=== PATIENT | female | born 1950 | race Caucasian/White ===

== ENCOUNTER 2019-01-17 20:43 | Inpatient (IN) | payer OTHER, BC ==
--- OUTSIDE RECORDS SUMMARY | 2019-01-17 20:45 | XMS REPORT | Clinical Summary ---
:1950 Author Organization [facility] Address [address] [place] [address] Care Team Providers Name Role Phone Sharon Mallory MD Primary Care Provider Allergies Active Allergy Reactions Severity Noted Date Comments Cefaclor 04/19/2018 Meperidine 04/19/2018 Hydromorphone 04/19/2018 Iodine 04/19/2018 Nitrofurantoin Macrocrystal 04/19/2018 Oxycodone-Aspirin 04/19/2018 Carisoprodol 04/19/2018 Sulfa (Sulfonamide Antibiotics) 04/19/2018 Talwin Compound 04/19/2018 Hydrocodone-Acetaminophen 04/19/2018 Medications Medication Sig Dispensed Refills Start Date End Date Status nebivolol (BYSTOLIC) 10 Bystolic 10 mg tablet 0 Active MG tablet TAKE 1 TABLET BY MOUTH DAILY oxybutynin (DITROPAN) 5 oxybutynin 0 Active MG tablet chloride 5 mg tablet traMADol (ULTRAM) 50 mg TAKE 1 TABLET BY 0 03/20/2018 Active tablet MOUTH EVERY 4 HOURS FOR 7 DAYS NEEDED FOR PAIN potassium chloride potassium 0 Active (K-DUR) 20 MEQ CR tablet chloride ER 20 mEq tablet,extended release(part/cry st) cetirizine (ZyrTEC) 10 Take 10 mg by 0 Active MG tablet mouth daily. lansoprazole (PREVACID) Take 15 mg by 0 Active 15 MG capsule mouth daily. magnesium citrate Take 296 mL by 0 Active solution mouth once. methylPREDNISolone follow package 21 tablet 0 04/19/2018 (MEDROL, KARRIE,) 4 mg directions 8 tabletIndications: Lumbar radiculopathy, Lumbar spondylolysis Active Problems No known active problems Encounters Date Type Specialty Care Team Description 08/01/2018 Hospital Encounter Radiology [place], Chronic cough Bj Wade MD 08/01/2018 Hospital Encounter Radiology [place], Cough; Bj Wade MD Allergic, initial encounter 07/19/2018 Transcribe Orders Access [place], Cough (Primary Dx); Bj Wade MD Allergic, initial encounter 07/19/2018 Transcribe Orders Access [place], Chronic cough (Primary Bj Wade MD Dx) 05/10/2018 Office Visit Orthopedic Surgery Matthew Brady, Lumbar radiculopathy, acute (Primary Dx); Nito Carrillo, Lumbar spondylolysis; Lumbar spondylosis; Spondylolisthesis of lumbar region 04/27/2018 Office Visit Orthopedic Surgery Deric Padgett Primary osteoarthritis MD Madyson of left hip (Primary Dx) 04/22/2018 Hospital Encounter Radiology Matthew Brady, Lumbar adjacent segment disease with spondylolisthesis; Nito Carrillo, Lumbar radiculopathy; Lumbar spondylolysis 04/19/2018 Office Visit Orthopedic Surgery Matthew Brady, Spondylolisthesis of lumbar region (Primary Dx); Nito Carrillo, Low back pain, unspecified back pain laterality, unspecified chronicity, with sciatica presence unspecified; Chronic midline thoracic back pain; Pain of left hip joint; Lumbar radiculopathy; Lumbar spondylolysis after 01/16/2018 Family History Medical History Relation Name Comments Cancer Father Heart disease Mother Relation Name Status Comments Father bladder CA Mother Alive Social History Tobacco Use Types Packs/Day Years Used Date Never Smoker Smokeless Tobacco: Never Used Alcohol Use Drinks/Week oz/Week Comments Yes 2 Sex Assigned at Date Recorded Not on file Job Start Date Occupation Industry Not on file Not on file Not on file Travel History Travel Start Travel End No recent travel history available. Last Filed Vital Signs Vital Sign Reading Time Taken Blood Pressure - - Pulse - - Temperature - - Respiratory Rate - - Oxygen Saturation - - Inhaled Oxygen Concentration - - Weight 93.4 kg (206 lb) 05/10/2018 3:44 PM [employer] Height 160 cm (5' 3") 05/10/2018 3:44 PM [employer] Body Mass Index 36.49 05/10/2018 3:44 PM [employer] Plan of Treatment Health Maintenance Due Date Last Done Comments BREAST CANCER SCREENING 2001 COLONOSCOPY SCREENING 2001 SHINGLES VACCINES (#1) 2001 65+ PNEUMOCOCCAL VACCINE (1 of 2 - PCV13) 2016 INFLUENZA VACCINE 01/12/2019 Procedures Procedure Name Priority Date/Time Associated Diagnosis Comments CT CHEST WO Routine 08/01/2018 12:10 Chronic cough Results for this CONTRAST PM [employer] procedure are in the results section. CT SINUS WO Routine 08/01/2018 12:10 Cough Results for this CONTRAST PM [employer] Allergic, initial procedure are in encounter the results section. MRI LUMBAR SPINE Routine 04/22/2018 2:41 Lumbar adjacent Results for this WO CONTRAST PM [employer] segment disease with procedure are in spondylolisthesis the results Lumbar radiculopathy section. Lumbar spondylolysis XR PELVIS 1 OR 2 Routine 04/19/2018 3:52 Pain of left hip joint Results for this VW PM [employer] procedure are in the results section. XR THORACIC SPINE Routine 04/19/2018 3:21 Chronic midline Results for this 2 VW PM [employer] thoracic back pain procedure are in the results section. XR LUMBAR SPINE Routine 04/19/2018 3:21 Low back pain, Results for this COMPLETE 4+ VW PM [employer] unspecified back pain procedure are in laterality, the results unspecified section. chronicity, with sciatica presence unspecified after 01/16/[address] Sinus Wo Contrast (08/01/2018 12:10 PM [employer]) Specimen Narrative Performed At EXAMINATION: CT SINUS WO CONTRAST [facility] CLINICAL HISTORY: R05 Cough, T78.40XA Allergyunspecifiedinitial encounter, R05T78.40XA COMPARISON:None TECHNIQUE: Axial noncontrast enhanced images were obtained through the paranasal sinuses. Bone and soft tissue windows were displayed as well as coronal and sagittal reconstructed images.CT imaging was performed with iterative reconstruction technique and/or automated exposure control to reduce radiation dose. FINDINGS: Frontal sinuses: Clear with patency of the frontal recesses. Ethmoid air cells: Clear with patency of the frontoethmoidal and sphenoethmoidal recesses. Sphenoid sinuses: Clear with patency of the sphenoid ostia. Maxillary sinuses: Minimal polypoid mucosal thickening with tiny foci of calcification along the posteroinferior aspect of the left maxillary sinus. Patency of the bilateral ostiomeatal units. Nasal cavity: Moderate rightward nasal septal deviation of its inferior aspect with apical spur posteriorly. Leftward deviation of the mid and superior portions of the anterior nasal septum. Depth of the olfactory fossae measure up to 5 mm. No evidence of ulceration or mass. Other: Limited evaluation of the visualized intracranial contents demonstrates no significant abnormality. Orbital contents are unremarkable. IMPRESSION: Minimal chronic appearing sinus inflammatory changes within the posterior and inferior aspect of the left maxillary sinus. Patency of the bilateral sinonasal drainage pathways. [id number] Procedure Note Interface, Radiology Results Incoming - 08/01/2018 12:49 PM [employer] EXAMINATION: CT SINUS WO CONTRAST CLINICAL HISTORY: R05 Cough, T78.40XA Allergy unspecified initial encounter, R05 T78.40XA COMPARISON: None TECHNIQUE: Axial noncontrast enhanced images were obtained through the paranasal sinuses. Bone and soft tissue windows were displayed as well as coronal and sagittal reconstructed images. CT imaging was performed with iterative reconstruction technique and/or automated exposure control to reduce radiation dose. FINDINGS: Frontal sinuses: Clear with patency of the frontal recesses. Ethmoid air cells: Clear with patency of the frontoethmoidal and sphenoethmoidal recesses. Sphenoid sinuses: Clear with patency of the sphenoid ostia. Maxillary sinuses: Minimal polypoid mucosal thickening with tiny foci of calcification along the posteroinferior aspect of the left maxillary sinus. Patency of the bilateral ostiomeatal units. Nasal cavity: Moderate rightward nasal septal deviation of its inferior aspect with apical spur posteriorly. Leftward deviation of the mid and superior portions of the anterior nasal septum. Depth of the olfactory fossae measure up to 5 mm. No evidence of ulceration or mass. Other: Limited evaluation of the visualized intracranial contents demonstrates no significant abnormality. Orbital contents are unremarkable. IMPRESSION: Minimal chronic appearing sinus inflammatory changes within the posterior and inferior aspect of the left maxillary sinus. Patency of the bilateral sinonasal drainage pathways. [facility]-[id number] Performing Organization Address City/State/Zipcode Phone Number [facility] [address] [place] [address] CT Chest Wo Contrast (08/01/2018 12:10 PM [employer]) Specimen Narrative Performed At EXAMINATION: [facility] CT CHEST WO CONTRAST CLINICAL HISTORY: R05 Cough, R05 TECHNIQUE: Multiple axial images of the chest were obtained without intravenous contrast. The lack of intravenous contrast reduces the sensitivity of detecting solid organ disease and evaluating vasculature. Sagittal and coronal computerized reformatted images were also obtained.All CT images were acquired using low-dose technique with automated exposure control. COMPARISON: None. FINDINGS: 1.Several small 2 to 3 mm subpleural nodules in lungs bilaterally. The largest in the right upper lobe measures 4 mm and is best visualized on image 46 of series 3. In a patient with no known malignancy the findings may represent sequela of prior infection or bronchiolitis. Follow-up in 3-6 month interval time may be of benefit. 2.The heart size is normal. The thoracic aorta is of normal caliber. There is minimal calcified atherosclerotic plaque in the proximal LAD distribution. No mediastinal lymphadenopathy. 3.Small hiatal hernia there are postsurgical changes in the upper abdomen relating to gastric sleeve surgery. 4.A pleural or pericardial effusion is not identified. No pneumothorax. 5.Osseous structures are intact. IMPRESSION: 1.Bilateral small subpleural pulmonary nodules the majority of which measure between 2 and 3 mm. There is a 4 mm right upper lobe nodule. In a patient with no known malignancy the findings are most likely related to sequela of bronchiolitis/infection. If there is further clinical concern follow-up in 3-6 month interval time may be of benefit. [facility]-[id number] Procedure Note [facility], Radiology Results Incoming - 08/01/2018 2:46 PM [employer] EXAMINATION: CT CHEST WO CONTRAST CLINICAL HISTORY: R05 Cough, R05 TECHNIQUE: Multiple axial images of the chest were obtained without intravenous contrast. The lack of intravenous contrast reduces the sensitivity of detecting solid organ disease and evaluating vasculature. Sagittal and coronal computerized reformatted images were also obtained. All CT images were acquired using low-dose technique with automated exposure control. COMPARISON: None. FINDINGS: 1. Several small 2 to 3 mm subpleural nodules in lungs bilaterally. The largest in the right upper lobe measures 4 mm and is best visualized on image 46 of series 3. In a patient with no known malignancy the findings may represent sequela of prior infection or bronchiolitis. Follow-up in 3-6 month interval time may be of benefit. 2. The heart size is normal. The thoracic aorta is of normal caliber. There is minimal calcified atherosclerotic plaque in the proximal LAD distribution. No mediastinal lymphadenopathy. 3. Small hiatal hernia there are postsurgical changes in the upper abdomen relating to gastric sleeve surgery. 4. A pleural or pericardial effusion is not identified. No pneumothorax. 5. Osseous structures are intact. IMPRESSION: 1. Bilateral small subpleural pulmonary nodules the majority of which measure between 2 and 3 mm. There is a 4 mm right upper lobe nodule. In a patient with no known malignancy the findings are most likely related to sequela of bronchiolitis/infection. If there is further clinical concern follow-up in 3-6 month interval time may be of benefit. [id number] Performing Organization Address City/State/Zipcode Phone Number [facility] [address] [place] [address] MRI Lumbar Spine Wo Contrast (04/22/2018 2:41 PM [employer]) Specimen Narrative Performed At EXAMINATION:MRI LUMBAR SPINE WO CONTRAST [facility] CLINICAL HISTORY:M51.36 Other intervertebral disc degenerationlumbar region, M43.16 Spondylolisthesislumbar region, lumbar spondylolisthesis spondylosisradiculopathy COMPARISON:Lumbar spine radiographs dated April 19, 2018 TECHNIQUE: Multiplanar MRI imaging withoutIV Gadolinium was performed. FINDINGS: There is a grade 2 anterior listhesis of L5 and S1 level. The remaining lumbar spine alignment is unremarkable. Vertebral bodies are preserved. Bone marrow is unremarkable with no evidence of acute fracture or suspicious marrow-replacing lesion. Intervertebral disc spaces are relatively preserved. The distal spinal cord appears unremarkable. The conus medullaris terminates at the L1 level and appears unremarkable. The cauda equina is unremarkable. L1-2: Unremarkable. L2-3: Unremarkable. L3-4: Minimal disc bulge. No canal stenosis or foramina narrowing. L4-5: Mild disc bulge with bilateral facet arthropathy. No canal stenosis or foraminal narrowing. L5-S1: There is bilateral spondylolysis of L5 with associated grade 2 spondylolisthesis of L5 and S1 level. There is bilateral advanced facet arthropathy with diffuse disc bulge. There is no canal stenosis. The lateral recesses are patent. There is severe bilateral foraminal narrowing with potential compromise of the exiting bilateral L5 nerve roots. Visualized paraspinal soft tissues are unremarkable. IMPRESSION: Bilateral spondylolysis of L5 with associated grade 2 anterior listhesis of L5 on S1 level and severe bilateral foraminal spondylotic narrowing with potential compromise of the exiting bilateral L5 nerve roots. [id number] Procedure Note Hm Interface, Radiology Results Incoming - 04/22/2018 3:21 PM [employer] EXAMINATION: MRI LUMBAR SPINE WO CONTRAST CLINICAL HISTORY: M51.36 Other intervertebral disc degeneration lumbar region , M43.16 Spondylolisthesis lumbar region, lumbar spondylolisthesis spondylosis radiculopathy COMPARISON: Lumbar spine radiographs dated April 19, 2018 TECHNIQUE: Multiplanar MRI imaging without IV Gadolinium was performed. FINDINGS: There is a grade 2 anterior listhesis of L5 and S1 level. The remaining lumbar spine alignment is unremarkable. Vertebral bodies are preserved. Bone marrow is unremarkable with no evidence of acute fracture or suspicious marrow-replacing lesion. Intervertebral disc spaces are relatively preserved. The distal spinal cord appears unremarkable. The conus medullaris terminates at the L1 level and appears unremarkable. The cauda equina is unremarkable. L1-2: Unremarkable. L2-3: Unremarkable. L3-4: Minimal disc bulge. No canal stenosis or foramina narrowing. L4-5: Mild disc bulge with bilateral facet arthropathy. No canal stenosis or foraminal narrowing. L5-S1: There is bilateral spondylolysis of L5 with associated grade 2 spondylolisthesis of L5 and S1 level. There is bilateral advanced facet arthropathy with diffuse disc bulge. There is no canal stenosis. The lateral recesses are patent. There is severe bilateral foraminal narrowing with potential compromise of the exiting bilateral L5 nerve roots. Visualized paraspinal soft tissues are unremarkable. IMPRESSION: Bilateral spondylolysis of L5 with associated grade 2 anterior listhesis of L5 on S1 level and severe bilateral foraminal spondylotic narrowing with potential compromise of the exiting bilateral L5 nerve roots. [id number] Performing Organization Address [facility] Phone Number [facility] [address] [place] [address] XR Pelvis 1 Or 2 Vw (04/19/2018 3:52 PM [employer]) Specimen Narrative Performed At X-ray pelvis and left hip shows advanced arthrosis and joint space [facility] narrowing.No fractures or bony erosions visualized. Performing Organization Address City/[facility]/Zipcode Phone Number [facility] [address] [place] [address] XR Thoracic Spine 2 Vw (04/19/2018 3:21 PM [employer]) Specimen Narrative Performed At X-ray thoracic spine AP lateral view shows mid thoracic 10 degree [facility] curvature apex to the right. No fractures or bony erosions visualized. Performing Organization Address City/[facility] Phone Number [facility] [address] [place] [address] XR Lumbar Spine Complete 4+ Vw (04/19/2018 3:21 PM [employer]) Specimen Narrative Performed At X-ray lumbar spine multiple views shows L5 bilateral pars fractures and a [facility] spondylolytic spondylolisthesis grade 2. Minimally mobile with flexion extension views there is also L4-5 disc degeneration and foraminal encroachment. Facet arthrosis and mild lumbar curve nonspecific. No fractures or bony erosions visualize of the pars fracture. Performing Organization Address [facility] Cent[facility]ode Phone Number [facility] [address] [place] [address] after 01/16/2018 Insurance Payer Benefit Plan / Subscriber ID Effective Dates Phone Address Type Group MEDICARE MEDICARE PART A xxxxxxxxxxx 2016-Present [place], [place] Medicare AND B BCBS BCBS CHOICE xxxxxxxxxxxx 2016-Present PPO PPO/[employer] PPO Advance Directives Patient has advance care planning documents on file. For more information, please contact:[facility] [place] [place] [address]
[2019-01-17 21:49] LABS: Absolute Lymphocytes (CBC) 1.1 K/uL (0.7-4.9); Basophils % 0.3 % (0-1.3); Hematocrit 40.7 % (36.0-45.0); Lymphocytes % 8.9 % (15.3-44.8); MPV 7.8 fL (7.6-11.3); RBC Red Blood Cell Count 4.67 M/uL (3.86-4.86)
[2019-01-17 22:05] LABS: Albumin 3.3 g/dL (3.4-5.0); Bilirubin Direct 0.5 mg/dL (0-0.2); Bilirubin Total 1.4 mg/dL (0.2-1.0); Potassium 3.9 mmol/L (3.5-5.1); Protein, Total 7.5 g/dL (6.4-8.2)
[2019-01-17 22:10] LABS: Urine Bacteria LOADED /HPF (<20); Urine Culture Reflex Order NOT NEEDED; Urine RBC >50 /HPF (NONE SEEN)
[2019-01-17 22:11] LABS: Urine Blood 3+ (NEG); Urine Glucose NEGATIVE (NEG); Urine Protein 3+ (NEG); Urine Specific Gravity 1.015 (1.005-1.030)
[2019-01-17 22:50] LABS: Blood Morphology Comment NOT SEEN (NOT SEEN); Platelet Estimate ADEQ; Urine White Blood Cell Casts OK
[2019-01-17] MEDS ORDERED: TAMSULOSIN 0.4 MG SR CAP ONE (22:52)
[2019-01-17] MEDS ORDERED: NA CHLORIDE 0.9% 500 ML ONE (22:52)
[2019-01-17] MEDS ORDERED: MAGNESIUM SULFATE 1 gm IVPB 1 GM/100 ML BAG IV ONE (22:53)
[2019-01-17] MEDS ORDERED: CIPROFLOXACIN 400mg IV 400 MG/200 ML BAG IV ONE (22:53)
--- NOTE | 2019-01-17 23:14 | EDPHYS ---
Physician Documentation [facility] Name: Fernanda Arizmendi Age: 68 yrs Sex: Female : 1950 Arrival Date: 01/17/2019 Time: 20:44 Bed 7 Private MD: ED Physician Jordan Reyez HPI: 01/17 21:11 This 68 yrs old Female presents to ER via Unassigned with complaints of rn Possible Kidney Stone, Fever. 21:11 The patient reports fever, that was measured at 103 degrees Fahrenheit. Onset: The rn symptoms/episode began/occurred 4 day(s) ago. Modifying factors: there are no obvious modifying factors. Severity of symptoms: At their worst the symptoms were moderate in the emergency department the symptoms have improved. The patient has experienced similar episodes in the past. Reports fever and right flank pain, feels identical to previous kidney stones, fever not going away. No cough/sore throat/rash. + nausea. . Historical: - Allergies: 21:23 Oxycodone HCl; fc 21:23 Sulfa (Sulfonamide Antibiotics); fc 21:23 hydrocodone bitartrate; fc 21:23 HYDROCODONE; fc 21:23 Codeine; fc 21:23 Cefaclor; fc 21:23 Ceclor; fc 21:23 Nitrofurantoin Macrocrystal; fc 21:23 meperidine HCl; fc 21:23 Iodine; fc 21:23 hydromorphone HCl; fc 21:23 oxycodone terephthalate; fc 21:23 Carisoprodol; fc - Home Meds: 21:23 Bystolic 10 mg oral tab 1 tab once daily [Active]; oxybutynin chloride 5 mg Oral tab fc [Active]; lansoprazole 15 mg oral cpDR 1 cap once daily [Active]; levocetirizine 5 mg oral tab 1 tab once daily [Active]; montelukast 10 mg oral tab 1 tab once daily [Active]; tramadol 50 mg Oral tab 1 tab as needed [Active]; Magnesium Oxide Oral [Active]; Potassium Chloride Oral [Active]; Vitamin B-6 100 mg oral tab daily [Active]; Vitamin C 1,000 mg Oral tab daily [Active]; Vitamin D Oral 5000 unit daily [Active]; - PMHx: 21:23 GERD; Hypertension; Allergies; Kidney stones; fc - PSHx: 21:23 Bladder suspension; Gastric Bypass; Hysterectomy; Knee surgery; abd mesh and removal; fc - Immunization history:: Last tetanus immunization: up to date. - Social history:: Smoking status: Patient/guardian denies using tobacco, Patient/guardian denies using alcohol, street drugs. - Family history:: not pertinent. - Ebola Screening: : Patient negative for fever greater than or equal to 101.5 degrees Fahrenheit, and additional compatible Ebola Virus Disease symptoms Patient denies exposure to infectious person Patient denies travel to an Ebola-affected area in the 21 days before illness onset. - Hospitalizations: : No recent hospitalization is reported. ROS: 21:11 Constitutional: + fever Eyes: Negative for injury, pain, redness, and discharge, ENT: rn Negative for injury, pain, and discharge, Neck: Negative for injury, pain, and swelling, Cardiovascular: Negative for chest pain, palpitations, and edema, Respiratory: Negative for shortness of breath, cough, wheezing, and pleuritic chest pain, Abdomen/GI: + nausea, + right lower abd pain Back: Negative for injury and pain, : Negative for injury, bleeding, discharge, and swelling, MS/Extremity: Negative for injury and deformity, Skin: Negative for injury, rash, and discoloration, Neuro: Negative for headache, weakness, numbness, tingling, and seizure. Exam: 21:11 Constitutional: This is a well developed, well nourished patient who is awake, alert, rn and in no acute distress. Head/Face: Normocephalic, atraumatic. Eyes: Pupils equal round and reactive to light, extra-ocular motions intact. Lids and lashes normal. Conjunctiva and sclera are non-icteric and not injected. Cornea within normal limits. Periorbital areas with no swelling, redness, or edema. ENT: MMM Respiratory: No increased work of breathing, no retractions or nasal flaring. Abdomen/GI: soft, non-tender Skin: Warm, dry MS/ Extremity: Pulses equal, no cyanosis. Neurovascular intact. Full, normal range of motion. Equal circumference. Neuro: Awake and alert, GCS 15, oriented to person, place, time, and situation. Cranial nerves II-XII grossly intact. Motor strength 5/5 in all extremities. Sensory grossly intact. Cerebellar exam normal. Vital Signs: 21:00 Weight 92.08 kg (R); Height 5 ft. 3 in. (160.02 cm) (R); Pain 2/10; fc 21:00 BP 130 / 70; Pulse 84; Resp 18; Temp 98.1; Pulse Ox 95% on R/A; ak1 22:00 BP 126 / 63; Pulse 89; Resp 18 S; Pulse Ox 94% on R/A; cc3 23:45 BP 128 / 64; Pulse 82; Resp 17 S; Pulse Ox 97% on R/A; cc3 01/18 00:11 BP 119 / 61; Pulse 78; Resp 17 S; Pulse Ox 95% on R/A; cc3 00:47 BP 117 / 60; Pulse 78; Resp 16; Temp 98.8(O); Pulse Ox 96% on R/A; ak1 01/17 21:00 Body Mass Index 35.96 (92.08 kg, 160.02 cm) fc MDM: 01/17 20:59 Patient medically screened. rn 23:11 Differential diagnosis: UTI, ureteral stone. Data reviewed: vital signs, nurses notes, distance learning technician test result(s), radiologic studies, CT scan. Counseling: I had a detailed discussion with the patient and/or guardian regarding: the historical points, exam findings, and any diagnostic results supporting the discharge/admit diagnosis, lab results, radiology results, the need for further work-up and treatment in the hospital. Response to treatment: the patient's symptoms have mildly improved after treatment, and as a result, I will admit patient. Admission orders: after a detailed discussion of the patient's condition and case, the admit orders are written by me. ED course: Will admit for distal ureteral stone, kidney infection, elevated WBC. . 01/17 21:00 Order name: Basic Metabolic Panel rn 01/17 21:00 Order name: CBC with Diff rn 01/17 21:00 Order name: Creatinine for Radiology; Complete Time: 22:40 rn 01/17 21:00 Order name: Hepatic Function; Complete Time: 22:40 rn 01/17 21:00 Order name: Lipase; Complete Time: 22:40 rn 01/17 21:00 Order name: Urine Culture rn 01/17 21: Order name: Urine Microscopic Only; Complete Time: 22:40 rn 01/17 21:00 Order name: CT Stone Protocol rn 01/17 21:00 Order name: Procalcitonin; Complete Time: 22:40 rn 01/17 21:00 Order name: Blood Culture Adult (2) rn 01/17 21:01 Order name: Basic Metabolic Panel; Complete Time: 22:40 EDMS 08 21:01 Order name: CBC with Automated Diff; Complete Time: 23:31 EDMS 08 21:44 Order name: Urine Dipstick--Ancillary (enter results); Complete Time: 22:40 [facility] 01/17 22:51 Order name: CBC Smear Scan; Complete Time: 23:31 EDMS 08 21:00 Order name: IV Saline Lock; Complete Time: 22:30 rn 01/17 21:00 Order name: Labs collected and sent; Complete Time: 22:30 rn 01/17 21:00 Order name: Urine Dipstick-Ancillary (obtain specimen); Complete Time: 22:30 rn Administered Medications: 23:00 Drug: Flomax 0.4 mg Route: PO; [facility] 01/18 00:30 Follow up: Response: No adverse reaction [facility] 01/17 23:00 Drug: Magnesium Sulfate 1 grams Route: IVPB; Infused Over: 1 hrs; Site: right [facility] antecubital; 01/18 00:00 Follow up: IV Status: Completed infusion; IV Intake: 100ml [facility] 01/17 23:00 Drug: NS 0.9% 500 ml Route: IV; Rate: bolus; Site: right antecubital; [facility] 01/18 00:00 Follow up: IV Status: Completed infusion; IV Intake: 500ml [facility] 00:24 Drug: Cipro 400 mg Volume: 200 ml; Route: IVPB; Infused Over: 60 mins; Site: right cc3 antecubital; 00:41 Follow up: IV Status: Order to discontinue infusion; Order to discontinue infusionpt [facility] with bruning sensation and redness to IV site. Dr. Reyez and DR. Francis notified. 01:13 Drug: Rocephin - (cefTRIAXone) 1 grams Route: IVPB; Infused Over: 30 mins; Site: right ak1 antecubital; 01:14 Follow up: IV Status: Completed infusion; IV Intake: 10ml [facility] 01:13 Drug: ZyrTEC - Cetirizine 10 mg Route: PO; ak1 01:14 Follow up: Response: No adverse reaction ak1 Disposition: 01/17/19 23:13 Hospitalization ordered by Landon Francis for Inpatient Admission. Preliminary diagnosis are Distal right ureteral stone, Urinary tract infection, site not specified. - Bed requested for Telemetry/MedSurg (Inpatient). - Status is Inpatient Admission. ak1 - Condition is Stable. - Problem is an ongoing problem. - Symptoms have improved. UTI on Admission? Yes Signatures: Dispatcher [employer] EDMS Sakshi Jaramillo RN RN Viviana Agarwal, RN RN Jordan Reyez MD MD rn Krenek, Amber, RN RN ak1 [facility] Wilson cc3 Corrections: (The following items were deleted from the chart) 01/17 23:17 23:13 Hospitalization Ordered by Landon Francis DO for Inpatient Admission. Preliminary mw diagnosis is Distal right ureteral stone; Urinary tract infection, site not specified. Bed requested for Telemetry/MedSurg (Inpatient). Status is Inpatient Admission. Condition is Stable. Problem is an ongoing problem. Symptoms have improved. UTI on Admission? Yes. rn 01/18 01:37 01/17 23:17 01/17/2019 23:13 Hospitalization Ordered by Landon Francis DO for Inpatient ak1 Admission. Preliminary diagnosis is Distal right ureteral stone; Urinary tract infection, site not specified. Bed requested for Telemetry/MedSurg (Inpatient). Status is Inpatient Admission. Condition is Stable. Problem is an ongoing problem. Symptoms have improved. UTI on Admission? Yes. mw
--- NOTE | 2019-01-17 23:14 | ER ---
Nurse's Notes [facility] Name: Fernanda Arizmendi Age: 68 yrs Sex: Female : 1950 Arrival Date: 01/17/2019 Time: 20:44 Bed 7 Private MD: Diagnosis: Distal right ureteral stone;Urinary tract infection, site not specified Presentation: 01/17 21:00 Presenting complaint: Patient states: that she has been having right sided pain on and fc off x 2 weeks. Positive for nausea and dark colored urine. Denies any diarrhea. Transition of care: patient was not received from another setting of care. Onset of symptoms was December 2018. Risk Assessment: Do you want to hurt yourself or someone else? Patient reports no desire to harm self or others. Initial Sepsis Screen: Does the patient meet any 2 criteria?. Care prior to arrival: None. 21:00 Method Of Arrival: Wheelchair fc 21:00 Acuity: CHICHI 3 fc 01/18 00:29 Initial Sepsis Screen: Does the patient have a suspected source of infection? No. ak1 Patient's initial sepsis screen is negative. Triage Assessment: 00:29 General: Appears in no apparent distress. comfortable, Behavior is calm, cooperative. ak1 Pain: Complains of pain in right side, right flank. Historical: - Allergies: 01/17 21:23 Oxycodone HCl; fc 21:23 Sulfa (Sulfonamide Antibiotics); fc 21:23 hydrocodone bitartrate; fc 21:23 HYDROCODONE; fc 21:23 Codeine; fc 21:23 Cefaclor; fc 21:23 Ceclor; fc 21:23 Nitrofurantoin Macrocrystal; fc 21:23 meperidine HCl; fc 21:23 Iodine; fc 21:23 hydromorphone HCl; fc 21:23 oxycodone terephthalate; fc 21:23 Carisoprodol; fc - Home Meds: 21:23 Bystolic 10 mg oral tab 1 tab once daily [Active]; oxybutynin chloride 5 mg Oral tab fc [Active]; lansoprazole 15 mg oral cpDR 1 cap once daily [Active]; levocetirizine 5 mg oral tab 1 tab once daily [Active]; montelukast 10 mg oral tab 1 tab once daily [Active]; tramadol 50 mg Oral tab 1 tab as needed [Active]; Magnesium Oxide Oral [Active]; Potassium Chloride Oral [Active]; Vitamin B-6 100 mg oral tab daily [Active]; Vitamin C 1,000 mg Oral tab daily [Active]; Vitamin D Oral 5000 unit daily [Active]; - PMHx: 21:23 GERD; Hypertension; Allergies; Kidney stones; fc - PSHx: 21:23 Bladder suspension; Gastric Bypass; Hysterectomy; Knee surgery; abd mesh and removal; fc - Immunization history:: Last tetanus immunization: up to date. - Social history:: Smoking status: Patient/guardian denies using tobacco, Patient/guardian denies using alcohol, street drugs. - Family history:: not pertinent. - Ebola Screening: : Patient negative for fever greater than or equal to 101.5 degrees Fahrenheit, and additional compatible Ebola Virus Disease symptoms Patient denies exposure to infectious person Patient denies travel to an Ebola-affected area in the 21 days before illness onset. - Hospitalizations: : No recent hospitalization is reported. Screenin:17 Abuse screen: Denies threats or abuse. Nutritional screening: No deficits noted. fc Tuberculosis screening: No symptoms or risk factors identified. Fall Risk None identified. Assessment: 21:00 General: Appears in no apparent distress. uncomfortable, Behavior is calm, cooperative. ak1 Pain: Complains of pain in right side, right flank. 21:00 Neuro: No deficits noted. Level of Consciousness is awake, alert, obeys commands, ak1 Oriented to person, place, time, situation, Appropriate for age Ed Educational Aide are equal bilaterally Moves all extremities. Gait is steady, Speech is normal. Cardiovascular: No deficits noted. Respiratory: No deficits noted. Airway is patent Respiratory effort is even, unlabored, Respiratory pattern is regular, symmetrical, Breath sounds are clear bilaterally. GI: Abdomen is round non-distended, Bowel sounds present X 4 quads. Abd is soft and non tender X 4 quads. Reports nausea. : Reports right side pain and right flank pain. pt with hx kidney stones. EENT: No signs and/or symptoms were reported regarding the EENT system. Derm: No signs and/or symptoms reported regarding the dermatologic system. Musculoskeletal: No signs and/or symptoms reported regarding the musculoskeletal system. 21:40 General: Appears in no apparent distress. Behavior is calm, cooperative. Neuro: No ak1 deficits noted. Cardiovascular: No deficits noted. Respiratory: No deficits noted. GI: Reports nausea. : Reports flank pain and urinary s/s. EENT: No signs and/or symptoms were reported regarding the EENT system. Derm: No signs and/or symptoms reported regarding the dermatologic system. Musculoskeletal: No signs and/or symptoms reported regarding the musculoskeletal system. 22:10 Reassessment: Patient appears in no apparent distress at this time. No changes from ak1 previously documented assessment. Patient and/or family updated on plan of care and expected duration. Pain level reassessed. Patient is alert, oriented x 3, equal unlabored respirations, skin warm/dry/pink. 23:00 Reassessment: Patient appears in no apparent distress at this time. No changes from ak1 previously documented assessment. Patient and/or family updated on plan of care and expected duration. Pain level reassessed. Patient is alert, oriented x 3, equal unlabored respirations, skin warm/dry/pink. 01/18 00:28 GI: Bowel sounds present X 4 quads. Abd is soft and non tender X 4 quads. Reports. ak1 00:47 Reassessment: pt with burning pain at IV site when Cipro infusing, Dr. Reyez and Dr. shay Francis notified. Verbal orders to d/c cipro IV and administer zyrtec 10mg PO and 1 gram rocefin IV. 01:14 Reassessment: pt tolerated IV antibiotic well. pt to be transported up to 424 via [facility] wheelchair. Vital Signs: 01/17 21:00 Weight 92.08 kg (R); Height 5 ft. 3 in. (160.02 cm) (R); Pain 2/10; fc 21:00 BP 130 / 70; Pulse 84; Resp 18; Temp 98.1; Pulse Ox 95% on R/A; ak1 22:00 BP 126 / 63; Pulse 89; Resp 18 S; Pulse Ox 94% on R/A; cc3 23:45 BP 128 / 64; Pulse 82; Resp 17 S; Pulse Ox 97% on R/A; cc3 0807 00:11 BP 119 / 61; Pulse 78; Resp 17 S; Pulse Ox 95% on R/A; cc3 00:47 BP 117 / 60; Pulse 78; Resp 16; Temp 98.8(O); Pulse Ox 96% on R/A; ak1 01/17 21:00 Body Mass Index 35.96 (92.08 kg, 160.02 cm) fc ED Course: 01/17 20:44 Patient arrived in ED. ds1 20:59 Jordan Reyez MD is Attending Physician. rn 21:00 Arm band placed on Patient placed in an exam room, on a stretcher. fc 21:00 Patient has correct armband on for positive identification. Placed in gown. Bed in low fc position. Call light in reach. Side rails up X 1. Pulse ox on. NIBP on. 21:00 No provider procedures requiring assistance completed. fc 21:16 Triage completed. fc 21:35 Inserted saline lock: 20 gauge in right antecubital area, using aseptic technique. [id number] Blood collected. 21:41 aZra Clancy, RN is Primary Nurse. ak1 22:28 CT Stone Protocol In Process Unspecified. EDMS 23:13 Landon Francis DO is Hospitalizing Provider. rn 01/18 00:32 Patient admitted, IV remains in place. ak1 Administered Medications: 01/17 23:00 Drug: Flomax 0.4 mg Route: PO; ak1 01/18 00:30 Follow up: Response: No adverse reaction ak1 01/17 23:00 Drug: Magnesium Sulfate 1 grams Route: IVPB; Infused Over: 1 hrs; Site: right ak1 antecubital; 01/18 00:00 Follow up: IV Status: Completed infusion; IV Intake: 100ml ak 01/17 23:00 Drug: NS 0.9% 500 ml Route: IV; Rate: bolus; Site: right antecubital; ak1 01/18 00:00 Follow up: IV Status: Completed infusion; IV Intake: 500ml ak1 00:24 Drug: Cipro 400 mg Volume: 200 ml; Route: IVPB; Infused Over: 60 mins; Site: right cc3 antecubital; 00:41 Follow up: IV Status: Order to discontinue infusion; Order to discontinue infusionpt ak1 with bruning sensation and redness to IV site. Dr. Reyez and DR. Francis notified. 01:13 Drug: Rocephin - (cefTRIAXone) 1 grams Route: IVPB; Infused Over: 30 mins; Site: right ak1 antecubital; 01:14 Follow up: IV Status: Completed infusion; IV Intake: 10ml ak1 01:13 Drug: ZyrTEC - Cetirizine 10 mg Route: PO; ak1 01:14 Follow up: Response: No adverse reaction ak1 Intake: 00:00 IV: 500ml; Total: 500ml. ak1 00:00 IV: 100ml; Total: 600ml. ak1 01:14 IV: 10ml; Total: 610ml. ak1 Outcome: 01/17 23:13 Decision to Hospitalize by Provider. rn 01/18 00:31 Admitted to Med/surg accompanied by tech, via wheelchair, room 424, with chart. ak1 Condition: good 01:37 Patient left the ED. ak1 Signatures: Dispatcher [employer] EDMS Viviana Agarwal RN RN May Brito ds1 Jordan Reyez MD MD rn Krenek, Amber, RN RN ak1 Fanny Linton jb5 [facility] cc3 Corrections: (The following items were deleted from the chart) 01/17 21:18 21:17 Patient has correct armband on for positive identification. Placed in gown. Bed fc in low position. Call light in reach. Side rails up X 1. fc 21:18 21:17 Pulse ox on. NIBP on. fc fc
--- NOTE | 2019-01-18 00:26 | P.HP ---
Certification for Inpatient Patient admitted to: Inpatient With expected LOS: >2 Midnights Patient will require the following post-hospital care: None Practitioner: I am a practitioner with admitting privileges, knowledge of patient current condition, hospital course, and medical plan of care. Services: Services provided to patient in accordance with Admission requirements found in Title 42 Section 412.3 of the Code of Federal Regulations Patient History Date of Service: 01/18/19 Primary Care Provider: Sharon Lyles MD([place], [place]) Reason for admission: Fever, right flank pain History of Present Illness: 68-year-old female presented to the emergency room with right flank pain and fever. Patient reports history of hypertension, nephrolithiasis. Patient came to the ER with increasing fever, chills and right flank pain. Symptoms started on Wednesday. She has not been able to sleep due to the pain. She reports some nausea but no vomiting. No diarrhea or constipation noted. Patient came to the ER for further evaluation. In the ER patient evaluated. Vital signs stable. White count 12.3, hemoglobin 13. Platelet count 199. Urinalysis showed evidence of UTI. Pro calcitonin negative. Sodium 135, potassium 3.9, creatinine 1.08. Glucose 121. CT scan revealed right 2 mm ureteral stone and pyelonephritis. Patient was admitted for further treatment and evaluation. When I saw the patient ER, she appeared stable. Patient reports history of nephrolithiasis since the age of around 15. Patient does not see urology. Allergies acetaminophen [From Vicodin] Allergy (Mild, Verified 01/14/16 08:18) upset stomach carisoprodol [From Soma] Allergy (Mild, Verified 01/08/16 14:18) Hives hydrocodone bitartrate [From Vicodin] Allergy (Mild, Verified 01/08/16 14:18) upset stomach hydromorphone HCl [From Dilaudid] Allergy (Mild, Verified 01/08/16 14:18) upset stomach iodine Allergy (Mild, Verified 01/14/16 08:17) Hives meperidine HCl [From Demerol] Allergy (Mild, Verified 01/08/16 14:18) upset stomach oxycodone HCl [From Percodan] Allergy (Mild, Verified 01/08/16 14:18) upset stomach oxycodone terephthalate [From Percodan] Allergy (Mild, Verified 01/08/16 14:18) upset stomach Sulfa (Sulfonamide Antibiotics) Allergy (Mild, Verified 01/08/16 14:18) Hives codeine Adverse Reaction (Mild, Verified 01/08/16 14:18) upset stomach hydrocodone Adverse Reaction (Mild, Verified 01/08/16 14:18) upset stomach nitrofurantoin macrocrystal [From Macrodantin] Adverse Reaction (Mild, Verified 01/08/16 14:18) upset stomach cefaclor [From Ceclor] Adverse Reaction (Verified 01/08/16 14:18) upset stomach hy Allergy (Uncoded 01/02/16 16:32) Unknown hydromorp Allergy (Uncoded 01/08/16 14:18) Unknown meperidine H Allergy (Uncoded 01/08/16 14:18) Unknown Nitrof Allergy (Uncoded 01/08/16 14:18) Unknown Home medications list reviewed: Yes Home Medications: Cetirizine HCl [Zyrtec*] 10 mg PO DAILY 04/24/13 Nebivolol HCl [Bystolic*] 10 mg PO DAILY 04/24/13 Aspirin [Aspirin EC] 81 mg PO DAILY 07/31/15 Lansoprazole [Prevacid] 30 mg PO DAILY 07/31/15 Magnesium [Magnesium Gluconate] 200 mg PO DAILY 07/31/15 Pyridoxine [Vitamin B-6] 100 mg PO DAILY 07/31/15 Triamterene/Hydrochlorothiazid [Triamterene-Hctz 37.5-25 mg Tb] 1 each PO DAILY 01/08/16 - Past Medical/Surgical History Diabetic: No -: HTN -: Recurrent kidney stones -: GERD -: Obesity -: Gastric Stapling -: Stent/lithotripsy -: Bladder suspension -: Hysterectomy -: Bladder mesh removal Psychosocial/ Personal History: Patient is . She has 2 children - Family History Family History: Reviewed- Non-Contributory - Social History Smoking Status: Never smoker Alcohol use: No CD- Drugs: No Caffeine use: Yes Place of Residence: Home Review of Systems General: Fever, Chills, Weakness, As per HPI Eyes: Unremarkable ENT: Unremarkable Respiratory: Unremarkable Cardiovascular: Unremarkable Gastrointestinal: Nausea, Abdominal Pain, As per HPI Genitourinary: Dysuria, As per HPI Musculoskeletal: Unremarkable Integumentary: Unremarkable Neurological: Unremarkable Lymphatics: Unremarkable Physical Examination - Physical Exam General: Alert, In no apparent distress, Oriented x3, Cooperative HEENT: Atraumatic, Normocephalic, PERRLA, Other (Dry mucous membranes) Neck: Supple, No Thyromegaly Respiratory: Clear to auscultation bilaterally, Normal air movement Cardiovascular: Normal pulses, Regular rate/rhythm Gastrointestinal: Normal bowel sounds, Soft and benign, Non-distended, No masses , No rebound, No guarding, Tenderness (Right flank pain noted) Musculoskeletal: No erythema, No tenderness, No warmth Integumentary: No tenderness/swelling, No erythema, No warmth, No cyanosis Neurological: Normal speech, Normal strength at 5/5 x4 extr, Normal tone, Normal affect - Studies Laboratory Data (last 24 hrs) 01/17/19 21:35: Creatinine 1.08 01/17/19 21:35: WBC 12.3 H, Hgb 13.3, Hct 40.7, Plt Count 199 01/17/19 21:35: Sodium 135 L, Potassium 3.9, BUN 15, Creatinine 1.07, Glucose 121 H, Total Bilirubin 1.4 H, AST 45 H, ALT 39, Alkaline Phosphatase 130 H, Lipase 75 Assessment and Plan - Plan Impression: Fever with right flank pain secondary to right pyelonephritis with right ureteral stone measuring 2 mm Hypertension Plan: Fever with right flank pain secondary to right pyelonephritis with right ureteral stone measuring 2 mm: Patient will be admitted for further evaluation and treatment. Will start IV Cipro. Urine and blood cultures obtained. Will provide medication for pain. Urology will be consulted to further evaluate and treat. Hopefully patient will be able the past ureteral stone. If not patient may require urological intervention. Will monitor strict input and output. Will straining urine. Anticipate discharge likely in the next 2-4 days with clinical improvement and after urinary results. Await further recommendations from neurology. Daytime hospitalist team to continue care. Hypertension: Continue with Bystolic. Will need to obtain and verify home medication. Will monitor and adjust appropriately. Discharge Plan: Home Plan to discharge in: Greater than 2 days - Advance Directives Does patient have a Living Will: No Does patient have a Durable POA for Healthcare: No - Code Status/Comfort Care Code Status Assessed: Yes (Patient is full code) Time Spent Managing Pts Care (In Minutes): 55
[2019-01-18] MEDS ORDERED: CETIRIZINE HCL 5 MG TABLET ONE (01:13)
[2019-01-18] MEDS ORDERED: CEFTRIAXONE/SWI 1gm 1 GM/10 ML SYR ONE (01:13)
[2019-01-18] MEDS: NA CHLORIDE 0.9% 1,000 ML IV SCH ×2 (01:32→11:48)
[2019-01-18] MEDS ORDERED: CETIRIZINE HCL 5 MG TABLET PO PRN (01:32)
[2019-01-18] MEDS ORDERED: ONDANSETRON 4 MG/2 ML VIAL IV PRN (01:32)
[2019-01-18 01:55] VITALS: BMI 35.8
[2019-01-18] MEDS: ENOXAPARIN 40 MG/0.4 ML SQ SCH (08:20)
[2019-01-18] MEDS: NEBIVOLOL HCL 5 MG TAB PO SCH (08:20)
[2019-01-18] MEDS: ASPIRIN EC 81 MG TAB PO SCH (08:20)
[2019-01-18] MEDS: VITAMIN D 1000 UNIT TAB PO SCH (08:20)
--- NOTE | 2019-01-18 11:46 | RAD REPORT ---
EXAM DESCRIPTION: CT - Stone Protocol - 01/18/2019 2:00 am CLINICAL HISTORY: Flank pain, hx of stone TECHNIQUE: Axial computed tomography images of the abdomen and pelvis without intravenous contrast. Sagittal and coronal reformatted images were created and reviewed. This CT exam was performed usi ng one or more of the following dose reduction techniques: automated exposure control, adjustment o f the mA and/or kV according to patient size, and/or use of iterative reconstruction technique. COMPARISON: No relevant prior studies available. FINDINGS: Limitations: None. Lung bases: Unremarkable. No mass. No consolidation. ABDOMEN: Liver: Unremarkable. Gallbladder and bile ducts: Cholecystectomy. No ductal dilation. Pancreas: Unremarkable. No ductal dilation. Spleen: Unremarkable. No splenomegaly. Adrenals: Unremarkable. No mass. Kidneys and ureters: Bilateral renal cortical scarring noted. There is mild right hydrouretero nephrosis. There is a 2 mm stone in the right distal ureter at the UVJ. There are bilateral intra renal stones measuring up to 3 mm. There is a 2 cm left renal cyst which appears benign. There is a hypodense area within the lower pole of the right kidney which is not defined and may represent a cyst. Stomach and bowel: Gastric bypass changes present. Colonic diverticulosis noted. No diverticulitis. No obstruction. PELVIS: Appendix: No findings to suggest acute appendicitis. Bladder: Unremarkable. No stones. Reproductive: Unremarkable as visualized. ABDOMEN and PELVIS: Intraperitoneal space: Unremarkable. No free air. No significant fluid collection. Bones/joints: Degenerative changes present in the spine and hips. No acute osseous abnormality . No dislocation. Soft tissues: Unremarkable. Vasculature: Unremarkable. No abdominal aortic aneurysm. Lymph nodes: Unremarkable. No enlarged lymph nodes. IMPRESSION: 1. 2 mm distal right ureteral stone with mild hydronephrosis. 2. Area of ill-defined hypodensity in the lower pole of the right kidney may represent a cyst. So nography recommended. Electronically signed by: Alta Suero MD 01/17/2019 10:38 PM CDT Due to temporary technical issues with the PACS/Fluency reporting system, reports are being signed by the in house radiologist as a courtesy to ensure prompt reporting. The interpreting radiologist is f ully responsible for the content of the report.
[2019-01-18] MEDS ORDERED: Ringers Lactate 1,000 ML IV ONE (14:24)
[2019-01-18] MEDS ORDERED: SUCCINYLCHOLINE 20 MG/ML (10 ML) IV ONE (14:39)
[2019-01-18] MEDS ORDERED: FENTANYL CITR 100 MCG/2 ML ONE (14:41)
[2019-01-18] MEDS ORDERED: PROPOFOL 200 MG/20 ML VIAL IV ONE (14:41)
[2019-01-18 16:14] LABS: Urine Culture Reflex Order NOT NEEDED; Urine Volume 1 ML
[2019-01-18 16:15] LABS: Urine RBC 20-50 /HPF (NONE SEEN)
[2019-01-18 16:16] LABS: Urine Bacteria 20-50 /HPF (<20)
[2019-01-18] MEDS: CEFTRIAXONE/SWI 1gm 1 GM/10 ML SYR IV SCH (21:58)
[2019-01-18] MEDS: TRAMADOL HCL 50 MG TAB PO PRN (23:41)
[2019-01-19] MEDS: IBUPROFEN 400 MG TAB PO PRN ×2 (00:02→20:36)
[2019-01-19] MEDS: NA CHLORIDE 0.9% 1,000 ML IV SCH ×2 (00:03→20:38)
[2019-01-19 06:08] LABS: Absolute Lymphocytes (CBC) 1.4 K/uL (0.7-4.9); Basophils % 0.5 % (0-1.3); Hematocrit 32.5 % (36.0-45.0); Lymphocytes % 28.2 % (15.3-44.8); MPV 8.2 fL (7.6-11.3)
[2019-01-19 06:26] LABS: Magnesium 2.1 mg/dL (1.8-2.4); Potassium 3.9 mmol/L (3.5-5.1)
[2019-01-19] MEDS: ASPIRIN EC 81 MG TAB PO SCH (08:23)
[2019-01-19] MEDS: VITAMIN D 1000 UNIT TAB PO SCH (08:23)
[2019-01-19] MEDS: NEBIVOLOL HCL 5 MG TAB PO SCH (08:23)
[2019-01-19] MEDS: ENOXAPARIN 40 MG/0.4 ML SQ SCH (08:23)
[2019-01-19] MEDS ORDERED: CEFTRIAXONE 1 GM/NS 50 ML 1 GM/50 ML BAG IV SCH (09:00)
--- NOTE | 2019-01-19 11:13 | P.PN ---
Subjective Date of Service: 01/19/19 Primary Care Provider: Sharon Lyles MD([place], [place]) Chief Complaint: Fever, right flank pain Patient seen and examined at bedside with RN. Chart reviewed. Case discussed with urology at this time. Currently patient is status post stent placement. Doing well overall. Urine cultures pending at this time. Review of Systems 10-point ROS is otherwise unremarkable Physical Examination - Vital Signs Temperature: 97.3 F Blood Pressure: 118/58 Pulse: 72 Respirations: 16 Pulse Ox (%): 98 - Physical Exam General: Alert, In no apparent distress HEENT: Atraumatic, PERRLA, EOMI Neck: Supple, JVD not distended Respiratory: Clear to auscultation bilaterally, Normal air movement Cardiovascular: Regular rate/rhythm, Normal S1 S2 Gastrointestinal: Normal bowel sounds, No tenderness Musculoskeletal: No tenderness Integumentary: No rashes Neurological: Normal speech, Normal tone, Normal affect Lymphatics: No axilla or inguinal lymphadenopathy - Studies Medications List Reviewed: Yes Assessment And Plan - Current Problems (Diagnosis) (1) Pyelonephritis Current Visit: Yes Status: Acute Plan: Pyelonephritis most likely secondary to obstructive uropathy to 2mm stone -currently on IV Rocephin will continue that here in the hospital -urine cultures pending at this time. Preliminary shows Gram negative rods (2) Nephrolithiasis Current Visit: Yes Status: Acute Plan: Nephrolithiasis was 2 mm stone -urology consulted. Appreciated recommendations -status post cystoscopy with stent placement -improvement in symptoms today - Plan Pending clinical improvement will follow up with the cultures here in the hospital shortly. Discharge Plan: Home Plan to discharge in: Greater than 2 days - Code Status/Comfort Care Code Status Assessed: Yes Critical Care: No
--- NOTE | 2019-01-19 20:29 | PN ---
Subjective: Patient is doing well. Objective: Patient is growing gram-negative rods in urine, pending urine culture. Assessment: Status post small stone with pyelonephritis, 2 mm stone in right ureterovesical junction , status post stent placement, postop day 1. Urine culture growing gram-negative rods. We will wait for the culture and sensitivity. Placed patient on antibiotics for 10 to 14 days. The stent can be removed in about a week in the office. MARJORIE/TATA Voice ID: [id number] Report ID: [id number]
[2019-01-19] MEDS: TRAMADOL HCL 50 MG TAB PO PRN (20:37)
[2019-01-19] MEDS: CEFTRIAXONE/SWI 1gm 1 GM/10 ML SYR IV SCH (20:37)
[2019-01-20 05:58] LABS: Absolute Lymphocytes (CBC) 1.5 K/uL (0.7-4.9); Basophils % 0.6 % (0-1.3); Hematocrit 31.8 % (36.0-45.0); Lymphocytes % 35.9 % (15.3-44.8); MPV 8.3 fL (7.6-11.3); RBC Red Blood Cell Count 3.64 M/uL (3.86-4.86)
[2019-01-20 06:11] LABS: Magnesium 1.9 mg/dL (1.8-2.4); Potassium 3.8 mmol/L (3.5-5.1)
[2019-01-20] MEDS: NA CHLORIDE 0.9% 1,000 ML IV SCH (06:44)
[2019-01-20 08:27] VITALS: TEMP 97.3
[2019-01-20] MEDS ORDERED: POTASSIUM 25 MEQ EFFERV TAB PO ONE (09:00)
[2019-01-20] MEDS: ASPIRIN EC 81 MG TAB PO SCH (09:21)
[2019-01-20] MEDS: NEBIVOLOL HCL 5 MG TAB PO SCH (09:21)
[2019-01-20] MEDS: ENOXAPARIN 40 MG/0.4 ML SQ SCH (09:21)
[2019-01-20] MEDS: VITAMIN D 1000 UNIT TAB PO SCH (09:21)
[2019-01-20 09:22] VITALS: O2SAT 97
--- NOTE | 2019-01-20 09:37 | RAD REPORT ---
EXAM DESCRIPTION: RAD - Urethrocystogrphy Retrograde - 01/19/2019 4:28 pm FINDINGS: There were 13 fluoroscopic KUB images acquired during a fluoroscopic assisted placement of a right pigtail stent. Fluoro time was 28 seconds. Images show no suspicious or unexpected finding.
--- NOTE | 2019-01-20 11:32 | P.DS ---
Admission Date: 01/18/19 Discharge Date: 01/20/19 Primary Care Provider: Sharon Lyles MD([place], [place]) Disposition: ROUTINE DISCHARGE Discharge Condition: GOOD Reason for Admission: Fever, right flank pain - Problems (1) Pyelonephritis Status: Acute (2) Nephrolithiasis Status: Acute Brief History of Present Illness: 68-year-old female presented to the emergency room with right flank pain and fever. Patient reports history of hypertension, nephrolithiasis. Patient came to the ER with increasing fever, chills and right flank pain. Symptoms started on Wednesday. She has not been able to sleep due to the pain. She reports some nausea but no vomiting. No diarrhea or constipation noted. Patient came to the ER for further evaluation. In the ER patient evaluated. Vital signs stable. White count 12.3, hemoglobin 13. Platelet count 199. Urinalysis showed evidence of UTI. Pro calcitonin negative. Sodium 135, potassium 3.9, creatinine 1.08. Glucose 121. CT scan revealed right 2 mm ureteral stone and pyelonephritis. Patient was admitted for further treatment and evaluation. When I saw the patient ER, she appeared stable. Patient reports history of nephrolithiasis since the age of around 15. Patient does not see urology. Hospital Course: Overall during the hospital stay patient remained stable Patient was initially admitted to the hospital for pyelonephritis and nephrolithiasis. Was found to have 2 mm stone. Urology was consulted. Patient had a cystoscopy done with stent placement. Patient was also started on IV antibiotics for her pyelonephritis. Urine culture and blood cultures were collected. Urine culture was positive for E. coli. E. coli was sensitive to Macrobid and thus patient was discharged home on Macrobid. Patient was also growing 2+ non beta-hemolytic strep however at this time we will go ahead and treat her with Macrobid. Patient was asked to follow up with primary care provider along with Dr. Chinchilla in about 1-2 weeks post discharge. Patient demonstrated understanding and thus was discharged home under stable condition. Vital Signs/Physical Exam: Temp Pulse Resp BP Pulse Ox 97.3 F 62 16 154/76 H 97 01/20/19 08:00 01/20/19 09:21 01/20/19 08:00 01/20/19 09:21 01/20/19 08:00 General: Alert, In no apparent distress HEENT: Atraumatic, PERRLA, EOMI Neck: Supple, JVD not distended Respiratory: Clear to auscultation bilaterally, Normal air movement Cardiovascular: Regular rate/rhythm, Normal S1 S2 Gastrointestinal: Normal bowel sounds, No tenderness Musculoskeletal: No tenderness Integumentary: No rashes Neurological: Normal speech, Normal tone, Normal affect Lymphatics: No axilla or inguinal lymphadenopathy Laboratory Data at Discharge: WBC 4.1 K/uL (4.3-10.9) L D 01/20/19 05:20 Hgb 10.3 g/dL (12.0-15.0) L 01/20/19 05:20 Hct 31.8 % (36.0-45.0) L 01/20/19 05:20 Plt Count 178 K/uL (152-406) 01/20/19 05:20 Sodium 144 mmol/L (136-145) 01/20/19 05:20 Potassium 3.8 mmol/L (3.5-5.1) 01/20/19 05:20 BUN 13 mg/dL (7-18) 01/20/19 05:20 Creatinine 0.73 mg/dL (0.55-1.3) 01/20/19 05:20 Glucose 96 mg/dL (74-106) 01/20/19 05:20 Magnesium 1.9 mg/dL (1.8-2.4) 01/20/19 05:20 Total Bilirubin 1.4 mg/dL (0.2-1.0) H 01/17/19 21:35 AST 45 U/L (15-37) H 01/17/19 21:35 ALT 39 U/L (12-78) 01/17/19 21:35 Alkaline Phosphatase 130 U/L (45-117) H 01/17/19 21:35 Lipase 75 U/L (73-393) 01/17/19 21:35 Home Medications: Nebivolol HCl [Bystolic*] 10 mg PO DAILY 04/24/13 Lansoprazole [Prevacid] 30 mg PO DAILY 07/31/15 Ascorbic Acid [Vitamin C*] 1,000 mg PO DAILY 01/18/19 Budesonide/Formoterol Fumarate [Symbicort 160-4.5 Mcg Inhaler] 1 puff IN BID 12/30 Cholecalciferol (Vitamin D3) [Vitamin D 5,000 IU Cap*] 1 cap PO DAILY 01/18/19 Magnesium Oxide Otc 01/18/19 Oxybutynin Chloride [Ditropan*] 1 tab PO DAILY 01/18/19 Potassium Chloride Otc 01/18/19 Pyridoxine [Vitamin B-6*] 100 mg PO DAILY 01/18/19 traMADol HCL [Ultram*] 1 tab PO Q6HR PRN 01/18/19 Nitrofuran Macro [Macrobid] 100 mg PO BID #14 cap 01/20/19 New Medications: Nitrofuran Macro [Macrobid] 100 mg PO BID #14 cap Diet: Regular Activity: Ad hafsa Followup: Freddy Chinchilla MD [ACTIVE - CAN ADMIT] - (call to schedule appointment)
[2019-01-20 12:08] VITALS: BP 146/68
== END 2019-01-20 11:23 | disposition home or self-care (01) | DRG 661 ==
LOC: ER 20:43 → ERHOLD 01-18 00:21 → 4TH 01-18 01:12
PROVIDERS: ADMIT Family Medicine; ATTEND Family Medicine
PROC: BT1D1ZZ Fluoroscopy of Right Kidney, Ureter and Bladder using Low Osmolar Contrast (ICD-10-PCS; 2019-01-18)
PROC: 0T768DZ Dilation of Right Ureter with Intraluminal Device, Via Natural or Artificial Opening Endoscopic (ICD-10-PCS; principal; 2019-01-18 13:15)
DX: N13.6 Pyonephrosis (principal); I10 Essential (primary) hypertension; K21.9 Gastro-esophageal reflux disease without esophagitis; E66.9 Obesity, unspecified; Z68.35 Body mass index [BMI] 35.0-35.9, adult; Z79.82 Long term (current) use of aspirin; Z87.442 Personal history of urinary calculi; Z98.84 Bariatric surgery status; Z88.5 Allergy status to narcotic agent; Z88.2 Allergy status to sulfonamides
CPT/HCPCS: 36415; 51610; 74176; 74450; 76377; 80048; 80076; 81003; 81015; 83690; 83735; 84145; 85025; 87040; 87077; 87086; 87088; 87186; 96365; 96367; 96375; 99285; J0330; J0696; J0744; J1650; J2704; J3010; J3475; J7030

== ENCOUNTER 2019-01-21 09:28 | Emergency (ER) | payer OTHER, BC ==
--- OUTSIDE RECORDS SUMMARY | 2019-01-21 09:30 | XMS REPORT | Clinical Summary ---
:1950 Author Organization [facility] Address [address] [place] [address] Care Team Providers Name Role Phone Sharon [...] hip joint; Lumbar radiculopathy; Lumbar spondylolysis after 01/20/2018 Family History Medical History Relation Name Comments [...] 93.4 kg (206 lb) 05/10/2018 3:44 PM [employer] Height 160 cm (5' 3") 05/10/2018 3:44 PM [employer] Body Mass Index 36.49 05/10/2018 3:44 PM [employer] Plan of Treatment Health Maintenance Due Date Last Done Comments BREAST CANCER SCREENING 2001 COLONOSCOPY SCREENING 2001 SHINGLES VACCINES (#1) 2001 65+ PNEUMOCOCCAL VACCINE (1 of 2 - PCV13) 2016 INFLUENZA VACCINE 01/12/2019 Procedures Procedure Name Priority Date/Time Associated Diagnosis Comments CT CHEST WO Routine 08/01/2018 12:10 Chronic cough Results for this CONTRAST PM [employer] procedure are in the results section. CT SINUS WO Routine 08/01/2018 12:10 Cough Results for this CONTRAST PM [employer] Allergic, initial procedure are in encounter the results section. MRI LUMBAR SPINE Routine 04/22/2018 2:41 Lumbar adjacent Results for this WO CONTRAST PM [employer] segment disease with procedure are in spondylolisthesis the results Lumbar radiculopathy section. Lumbar spondylolysis XR PELVIS 1 OR 2 Routine 04/19/2018 3:52 Pain of left hip joint Results for this VW PM [employer] procedure are in the results section. XR THORACIC SPINE Routine 04/19/2018 3:21 Chronic midline Results for this 2 VW PM [employer] thoracic back pain procedure are in the results section. XR LUMBAR SPINE Routine 04/19/2018 3:21 Low back pain, Results for this COMPLETE 4+ VW PM [employer] unspecified back pain procedure are in laterality, the results unspecified section. chronicity, with sciatica presence unspecified after 01/20/[address] Sinus Wo Contrast (08/01/2018 12:10 PM [employer]) Specimen Narrative Performed At EXAMINATION: CT SINUS [...] Patency of the bilateral sinonasal drainage pathways. [id number] Procedure Note Interface, Radiology Results Incoming - 08/01/2018 12:49 PM [employer] EXAMINATION: CT SINUS WO CONTRAST CLINICAL HISTORY: [...] Patency of the bilateral sinonasal drainage pathways. [facility]-[id number] Performing Organization Address City/State/Zipcode Phone Number [facility] [address] [place] [address] CT Chest Wo Contrast (08/01/2018 12:10 PM [employer]) Specimen Narrative Performed At EXAMINATION: [facility] CT CHEST WO CONTRAST CLINICAL HISTORY: R05 [...] month interval time may be of benefit. [id number] Procedure Note [facility][1], Radiology Results Incoming - 08/01/2018 2:46 PM [employer] EXAMINATION: CT CHEST WO CONTRAST CLINICAL HISTORY: [...] month interval time may be of benefit. [id number] Performing Organization Address City/State/Zipcode Phone Number [facility] [address] [place] [address] MRI Lumbar Spine Wo Contrast (04/22/2018 2:41 PM [employer]) Specimen Narrative Performed At EXAMINATION:MRI LUMBAR SPINE [...] of the exiting bilateral L5 nerve roots. [id number] Procedure Note Hm Interface, Radiology Results Incoming - 04/22/2018 3:21 PM [employer] EXAMINATION: MRI LUMBAR SPINE WO CONTRAST CLINICAL [...] of the exiting bilateral L5 nerve roots. [id number] Performing Organization Address City/[facility] Phone Number [facility] [address] [place] [address] XR Pelvis 1 Or 2 Vw (04/19/2018 3:52 PM [employer]) Specimen Narrative Performed At X-ray pelvis and left hip shows advanced arthrosis and joint space [facility] narrowing.No fractures or bony erosions visualized. Performing Organization Address City/[facility]/Zipcode Phone Number [facility] [address] [place] [address] XR Thoracic Spine 2 Vw (04/19/2018 3:21 PM [employer]) Specimen Narrative Performed At X-ray thoracic spine AP lateral view shows mid thoracic 10 degree HM [facility] curvature apex to the right. No fractures or bony erosions visualized. Performing Organization Address City/[facility] Phone Number [facility] [address] [place] [address] XR Lumbar Spine Complete 4+ Vw (04/19/2018 3:21 PM [employer]) Specimen Narrative Performed At X-ray lumbar spine multiple views shows L5 bilateral pars fractures and a [facility] spondylolytic spondylolisthesis grade 2. Minimally mobile with flexion extension views there is also L4-5 disc degeneration and foraminal encroachment. Facet arthrosis and mild lumbar curve nonspecific. No fractures or bony erosions visualize of the pars fracture. Performing Organization Address [facility] Phone Number [facility] [address] [place] [address] after 01/20/2018 Insurance Payer Benefit Plan / Subscriber ID Effective Dates Phone Address Type Group MEDICARE MEDICARE PART A xxxxxxxxxxx 2016-Present [place], [place] Medicare AND B BCBS BCBS CHOICE xxxxxxxxxxxx 2016-Present PPO PPO/[employer] PPO Advance Directives Patient has advance care planning documents on file. For more information, please contact:[facility] [place] [address]
[2019-01-21] MEDS ORDERED: CEFTRIAXONE/SWI 1gm 1 GM/10 ML SYR ONE (10:16)
[2019-01-21] MEDS ORDERED: MORPHINE 4 MG/ML SYR ONE (10:16)
[2019-01-21] MEDS ORDERED: ONDANSETRON 4 MG/2 ML VIAL ONE (10:16)
[2019-01-21] MEDS ORDERED: NA CHLORIDE 0.9% 1,000 ML ONE (10:17)
[2019-01-21 10:18] LABS: Absolute Lymphocytes (CBC) 1.1 K/uL (0.7-4.9); Basophils % 0.7 % (0-1.3); Hematocrit 36.2 % (36.0-45.0); Lymphocytes % 25.6 % (15.3-44.8); RBC Red Blood Cell Count 4.18 M/uL (3.86-4.86)
--- NOTE | 2019-01-21 10:34 | EDPHYS ---
Physician Documentation [facility] Name: Fernanda Arizmendi Age: 68 yrs Sex: Female : 1950 Arrival Date: 01/21/2019 Time: 09:32 Bed 5 Private MD: Sharon Mallory ED Physician Sabino Velasquez HPI: 01/21 09:55 This 68 yrs old Female presents to ER via Unassigned with complaints of Stent lolis Problem. 09:55 The patient complains of pain in the right mid back and right low back. The pain does lolis not radiate. Onset: The symptoms/episode began/occurred today, yesterday. Modifying factors: The symptoms are alleviated by nothing. the symptoms are aggravated by nothing. Associated signs and symptoms: The patient has no apparent associated signs or symptoms. Severity of pain: At its worst the pain was moderate in the emergency department the pain is unchanged. The patient has experienced similar episodes in the past. Historical: - Allergies: 09:54 Carisoprodol; aa5 09:54 Ceclor; aa5 09:54 Cefaclor; aa5 09:54 Codeine; aa5 09:54 HYDROCODONE; aa5 09:54 hydrocodone bitartrate; aa5 09:54 hydromorphone HCl; aa5 09:54 Iodine; aa5 09:54 meperidine HCl; aa5 09:54 Oxycodone HCl; aa5 09:54 oxycodone terephthalate; aa5 09:54 Sulfa (Sulfonamide Antibiotics); aa5 11:32 Cipro IV; iw - PMHx: 09:54 allergies; GERD; Hypertension; Kidney stones; aa5 - PSHx: 09:54 Bladder suspension; Gastric Bypass; Hysterectomy; Knee surgery; abd mesh and removal; aa5 Kidney stent; - Immunization history:: Adult Immunizations up to date. - Social history:: Smoking status: Patient/guardian denies using tobacco. - Family history:: not pertinent. - Ebola Screening: : No symptoms or risks identified at this time. ROS: 09:55 Constitutional: Negative for fever, chills, and weight loss, Eyes: Negative for injury, lolis pain, redness, and discharge, ENT: Negative for injury, pain, and discharge, Neck: Negative for injury, pain, and swelling, Cardiovascular: Negative for chest pain, palpitations, and edema, Respiratory: Negative for shortness of breath, cough, wheezing, and pleuritic chest pain, : Negative for injury, bleeding, discharge, and swelling, MS/Extremity: Negative for injury and deformity, Skin: Negative for injury, rash, and discoloration, Neuro: Negative for headache, weakness, numbness, tingling, and seizure, Psych: Negative for depression, anxiety, suicide ideation, homicidal ideation, and hallucinations, Allergy/Immunology: Negative for hives, rash, and allergies, Endocrine: Negative for neck swelling, polydipsia, polyuria, polyphagia, and marked weight changes, Hematologic/Lymphatic: Negative for swollen nodes, abnormal bleeding, and unusual bruising. 09:55 Abdomen/GI: Positive for abdominal pain, abdominal distension, of the posterior aspect of right lateral abdomen, anterior aspect of right lateral abdomen, right upper quadrant and right lower quadrant. Exam: 09:55 Constitutional: This is a well developed, well nourished patient who is awake, alert, lolis and in no acute distress. Head/Face: Normocephalic, atraumatic. Eyes: Pupils equal round and reactive to light, extra-ocular motions intact. Lids and lashes normal. Conjunctiva and sclera are non-icteric and not injected. Cornea within normal limits. Periorbital areas with no swelling, redness, or edema. ENT: Nares patent. No nasal discharge, no septal abnormalities noted. Tympanic membranes are normal and external auditory canals are clear. Oropharynx with no redness, swelling, or masses, exudates, or evidence of obstruction, uvula midline. Mucous membranes moist. Neck: Trachea midline, no thyromegaly or masses palpated, and no cervical lymphadenopathy. Supple, full range of motion without nuchal rigidity, or vertebral point tenderness. No Meningismus. Chest/axilla: Normal chest wall appearance and motion. Nontender with no deformity. No lesions are appreciated. Cardiovascular: Regular rate and rhythm with a normal S1 and S2. No gallops, murmurs, or rubs. Normal PMI, no JVD. No pulse deficits. Respiratory: Lungs have equal breath sounds bilaterally, clear to auscultation and percussion. No rales, rhonchi or wheezes noted. No increased work of breathing, no retractions or nasal flaring. Female : Normal external genitalia. Skin: Warm, dry with normal turgor. Normal color with no rashes, no lesions, and no evidence of cellulitis. MS/ Extremity: Pulses equal, no cyanosis. Neurovascular intact. Full, normal range of motion. Neuro: Awake and alert, GCS 15, oriented to person, place, time, and situation. Cranial nerves II-XII grossly intact. Motor strength 5/5 in all extremities. Sensory grossly intact. Cerebellar exam normal. Normal gait. Psych: Awake, alert, with orientation to person, place and time. Behavior, mood, and affect are within normal limits. 09:55 Abdomen/GI: Inspection: abdomen appears normal, Bowel sounds: normal, Palpation: moderate abdominal tenderness, in the posterior aspect of right lateral abdomen, anterior aspect of right lateral abdomen, right upper quadrant and right lower quadrant, Liver: no appreciated palpable abnormalities, Hernia: not appreciated. Vital Signs: 10:00 BP 165 / 91; Pulse 68; Resp 18 S; Temp 98.1(O); Pulse Ox 98% on R/A; Weight 91.63 kg aa5 (R); Height 5 ft. 2 in. (157.48 cm) (R); Pain 0/10; 10:00 Body Mass Index 36.95 (91.63 kg, 157.48 cm) aa5 MDM: 09:50 Patient medically screened. [facility] 09:57 Data reviewed: vital signs, nurses notes, lab test result(s), radiologic studies, plain lolis films. 01/21 09:52 Order name: CBC with Diff; Complete Time: 11:05 [facility] 01/21 09:52 Order name: Comprehensive Metabolic Panel; Complete Time: 11:05 [facility] 01/21 09:52 Order name: Urine Culture [facility] 01/21 09:52 Order name: Abdomen 1 View (KUB) XRAY [facility] 01/21 11:28 Order name: Urine Dipstick--Ancillary (enter results) em1 01/21 09:52 Order name: Urine Dipstick-Ancillary (obtain specimen); Complete Time: 11:25 [facility] 01/21 10:25 Order name: Labs - recollect needed: green top; Complete Time: 10:41 iw Administered Medications: 10:15 Drug: NS 0.9% 1000 ml Route: IV; Rate: 1 bolus; Site: right forearm; aa5 11:20 Follow up: IV Status: Completed infusion; IV Intake: 1000ml aa5 10:15 Drug: morphine 2 mg Route: IVP; Site: right forearm; aa5 10:20 Follow up: Response: No adverse reaction aa5 10:15 Drug: Zofran 4 mg Route: IVP; Site: right forearm; aa5 10:20 Follow up: Response: No adverse reaction aa5 10:20 Drug: Rocephin 1 grams Route: IV; Rate: per protocol; Site: right forearm; aa5 10:30 Follow up: Response: No adverse reaction aa5 10:30 Not Given (Patient Refused): morphine 2 mg IVP once; RASS on ADMIN: Combtv4, Very aa5 Agttd3, Agttd2, Rstlss1, AlertClm0, Drwsy-1, Lt Sdtn-2, Mod Sdtn-3, Dp Sdtn-4, UnArsble-5 11:32 CANCELLED (Duplicate Order): Cipro 500 mg PO once [facility] 11:42 Drug: Augmentin 875 mg Route: PO; aa5 11:42 Follow up: Response: Medication administered at discharge. aa5 Disposition: 01/21/19 10:35 Discharged to Home. Impression: Dysuria - displaced double j stent, partially. - Condition is Stable. - Discharge Instructions: Dysuria. - Prescriptions for Augmentin 500- 125 mg Oral Tablet - take 1 tablet by ORAL route every 8 hours for 7 days; 21 tablet. - Medication Reconciliation Form, Thank You Letter, Antibiotic Education, Prescription Opioid Use form. - Follow up: Sharon Mallory MD; When: 1 - 2 days; Reason: Recheck today's complaints, Continuance of care, Re-evaluation by your physician. Follow up: Freddy Chinchilla MD; When: 1 - 2 days; Reason: Recheck today's complaints, Continuance of care, Re-evaluation by your physician. - Problem is new. - Symptoms have improved. Signatures: Dispatcher [employer] Sabino Fisher MD MD cha Williams, Irene, RN RN iw Saida Avila RN RN aa5 Corrections: (The following items were deleted from the chart) 11:32 11:24 Cipro 500 mg PO once ordered. lolis danielle 11:32 11:31 Allergies: Cipro PO; iw iw 11:46 10:35 01/21/2019 10:35 Discharged to Home. Impression: Dysuria - displaced double j aa5 stent, partially. Condition is Stable. Forms are Medication Reconciliation Form, Thank You Letter, Antibiotic Education, Prescription Opioid Use. Follow up: Sharon Mallory; When: 1 - 2 days; Reason: Recheck today's complaints, Continuance of care, Re-evaluation by your physician. Follow up: Freddy Chinchilla; When: 1 - 2 days; Reason: Recheck today's complaints, Continuance of care, Re-evaluation by your physician. Problem is new. Symptoms have improved. lolis
--- NOTE | 2019-01-21 10:34 | ER ---
Nurse's Notes [facility] Name: Fernanda Arizmendi Age: 68 yrs Sex: Female : 1950 Arrival Date: 01/21/2019 Time: 09:32 Bed 5 Private MD: Sharon Mallory Diagnosis: Dysuria-displaced double j stent, partially Presentation: 01/21 09:40 Note Pt in restroom. aa5 09:54 Presenting complaint: Patient states: "I accidentally pulled on my kidney stent string aa5 and now I am leaking everywhere". Pt denies pain. Pt reports having kidney stent placed by Dr. Chinchilla on Wednesday. Pt reports taking Macrobid. 09:54 Risk Assessment: Do you want to hurt yourself or someone else? Patient reports no aa5 desire to harm self or others. 09:54 Acuity: CHICHI 3 aa5 09:54 Transition of care: patient was not received from another setting of care. Onset of aa5 symptoms was January 2019. Initial Sepsis Screen: Does the patient meet any 2 criteria? No. Patient's initial sepsis screen is negative. Does the patient have a suspected source of infection? No. Patient's initial sepsis screen is negative. Care prior to arrival: None. 09:54 Method Of Arrival: Ambulatory aa5 Historical: - Allergies: 09:54 Carisoprodol; aa5 09:54 Ceclor; aa5 09:54 Cefaclor; aa5 09:54 Codeine; aa5 09:54 HYDROCODONE; aa5 09:54 hydrocodone bitartrate; aa5 09:54 hydromorphone HCl; aa5 09:54 Iodine; aa5 09:54 meperidine HCl; aa5 09:54 Oxycodone HCl; aa5 09:54 oxycodone terephthalate; aa5 09:54 Sulfa (Sulfonamide Antibiotics); aa5 11:32 Cipro IV; iw - PMHx: 09:54 allergies; GERD; Hypertension; Kidney stones; aa5 - PSHx: 09:54 Bladder suspension; Gastric Bypass; Hysterectomy; Knee surgery; abd mesh and removal; aa5 Kidney stent; - Immunization history:: Adult Immunizations up to date. - Social history:: Smoking status: Patient/guardian denies using tobacco. - Family history:: not pertinent. - Ebola Screening: : No symptoms or risks identified at this time. Screenin:36 Abuse screen: Denies threats or abuse. Nutritional screening: No deficits noted. aa5 Tuberculosis screening: No symptoms or risk factors identified. Fall Risk None identified. Assessment: 09:55 General: Appears uncomfortable, Behavior is calm, cooperative. Pain: Denies pain. aa5 Neuro: Level of Consciousness is awake, alert, obeys commands, Oriented to person, place, time, situation. Cardiovascular: Heart tones S1 S2 present Rhythm is regular. Respiratory: Airway is patent Respiratory effort is even, unlabored, Respiratory pattern is regular, symmetrical. GI: Abdomen is round Bowel sounds present X 4 quads. Abd is soft and non tender X 4 quads. Patient currently denies nausea, vomiting. : Pt states "I am leaking because I pulled on my kidney stent" Denies burning with urination. EENT: No signs and/or symptoms were reported regarding the EENT system. Derm: Skin is pink, warm \\T\\ dry. Musculoskeletal: Range of motion: intact in all extremities. 10:18 Reassessment: Kidney stent removed by Dr. Velasquez at this time, pt tolerated well. Pt aa5 currently denies pain. . 10:18 Reassessment: Patient is alert, oriented x 3, equal unlabored respirations, skin aa5 warm/dry/pink. 11:15 Reassessment: Patient is alert, oriented x 3, equal unlabored respirations, skin aa5 warm/dry/pink. Pt ambulatory to restroom, accompanied by significant other . Vital Signs: 10:00 BP 165 / 91; Pulse 68; Resp 18 S; Temp 98.1(O); Pulse Ox 98% on R/A; Weight 91.63 kg aa5 (R); Height 5 ft. 2 in. (157.48 cm) (R); Pain 0/10; 10:00 Body Mass Index 36.95 (91.63 kg, 157.48 cm) aa5 ED Course: 09:32 Patient arrived in ED. ag5 09:33 Sharon Mallory MD is Private Physician. ag5 09:48 Nicolasa Zaman RN is Primary Nurse. jl7 09:50 Sabino Velasquez MD is Attending Physician. lolis 09:54 Arm band placed on Patient placed in an exam room, on a stretcher. aa5 09:54 Patient has correct armband on for positive identification. Placed in gown. Bed in low aa5 position. Call light in reach. Side rails up X2. 10:12 Initial lab(s) drawn, by me, sent to lab. Inserted saline lock: 22 gauge in right aa5 forearm, using aseptic technique. Blood collected. 10:34 Sharon Mallory MD is Referral Physician. lolis 10:34 Freddy Chinchilla MD is Referral Physician. lolis 10:34 Triage completed. aa5 10:41 Abdomen 1 View (KUB) XRAY In Process Unspecified. EDMS 10:42 Lab(s) recollected, by me, sent to lab. jl7 10:51 Saida Avila, RN is Primary Nurse. aa5 11:42 No provider procedures requiring assistance completed. IV discontinued, intact, aa5 bleeding controlled, No redness/swelling at site. Pressure dressing applied. Administered Medications: 10:15 Drug: NS 0.9% 1000 ml Route: IV; Rate: 1 bolus; Site: right forearm; aa5 11:20 Follow up: IV Status: Completed infusion; IV Intake: 1000ml aa5 10:15 Drug: morphine 2 mg Route: IVP; Site: right forearm; aa5 10:20 Follow up: Response: No adverse reaction aa5 10:15 Drug: Zofran 4 mg Route: IVP; Site: right forearm; aa5 10:20 Follow up: Response: No adverse reaction aa5 10:20 Drug: Rocephin 1 grams Route: IV; Rate: per protocol; Site: right forearm; aa5 10:30 Follow up: Response: No adverse reaction aa5 10:30 Not Given (Patient Refused): morphine 2 mg IVP once; RASS on ADMIN: Combtv4, Very aa5 Agttd3, Agttd2, Rstlss1, AlertClm0, Drwsy-1, Lt Sdtn-2, Mod Sdtn-3, Dp Sdtn-4, UnArsble-5 11:32 CANCELLED (Duplicate Order): Cipro 500 mg PO once lolis 11:42 Drug: Augmentin 875 mg Route: PO; aa5 11:42 Follow up: Response: Medication administered at discharge. aa5 Intake: 11:20 IV: 1000ml; Total: 1000ml. aa5 Outcome: 10:35 Discharge ordered by . lolis 11:42 Discharged to home ambulatory, with significant other. aa5 11:42 Condition: improved 11:42 Discharge instructions given to patient, significant other, Instructed on discharge instructions, follow up and referral plans. medication usage, Demonstrated understanding of instructions, follow-up care, medications, Prescriptions given X 1, Pt instructed to continue Macrobid per Dr. Velasquez 11:46 Patient left the ED. aa5 Signatures: Dispatcher [employer] EDIN Sabino Velasquez MD MD cha Williams, Irene, RN RN Saida Price RN RN aa5 Nicolasa Zaman RN RN jl7 Adrien Foster ag5 Corrections: (The following items were deleted from the chart) 10:36 10:00 BP 165 / 91; Pulse 68bpm; Resp 18bpm; Spontaneous; Pulse Ox 98% RA; Temp 98.1F aa5 Oral; Pain 0/10; aa5 10:37 10:00 Arm band placed on Patient placed in an exam room, on a stretcher, aa5 aa5 11:32 11:31 Allergies: Cipro PO; iw iw
[2019-01-21 11:04] LABS: Albumin 2.6 g/dL (3.4-5.0); Bilirubin Total 0.3 mg/dL (0.2-1.0); Potassium 3.7 mmol/L (3.5-5.1); Protein, Total 6.1 g/dL (6.4-8.2)
[2019-01-21] MEDS ORDERED: CIPROFLOXACIN HCL 500 MG TAB ONE (11:30)
[2019-01-21 11:32] LABS: Urine Blood 2+ (NEG); Urine Glucose NEGATIVE (NEG); Urine Protein TRACE (NEG); Urine Specific Gravity 1.015 (1.005-1.030)
[2019-01-21] MEDS ORDERED: AMOX/K CLAV 875 MG TAB ONE (11:39)
[2019-01-21 11:51] VITALS: BP 165/91; TEMP 98.1; O2SAT 98
--- NOTE | 2019-01-21 12:12 | RAD REPORT ---
EXAM DESCRIPTION: RAD - Abdomen 1 View (KUB) - 01/21/2019 10:39 am CLINICAL HISTORY: ABD PAIN Pain COMPARISON: Abdomen 1 View (KUB) dated 02/11/2016; Abdomen 1 View (KUB) dated 01/14/2016; ABDOMEN 1 VIE W KUB dated 05/13/2015; ABDOMEN 1 VIEW KUB dated 05/30/2013 FINDINGS: The bowel gas pattern is non-obstructive. No evidence of free air or pneumatosis. Right do uble-J stent is in place. No calcifications are seen along the course of the stent No significant bony findings. Cholecystectomy clips. IMPRESSION: Negative examination.
== END 2019-01-21 11:46 | disposition home or self-care (01) ==
LOC: ER 09:28
DX: T83.89XA Other specified complication of genitourinary prosthetic devices, implants and grafts, initial encounter (principal); R30.0 Dysuria; M54.5 Low back pain; I10 Essential (primary) hypertension; K21.9 Gastro-esophageal reflux disease without esophagitis; Z88.1 Allergy status to other antibiotic agents; Z88.5 Allergy status to narcotic agent; Z88.2 Allergy status to sulfonamides; Z88.8 Allergy status to other drugs, medicaments and biological substances
CPT/HCPCS: 96361; 87088; 85025; 87086; 36415; 81003; 80053; 74018; 96375; 96374; 99284; J0696; J7030; J2405

== ENCOUNTER 2022-07-28 10:06 | Day surgery (SDC) | payer OTHER, BC ==
[2022-07-28] MEDS ORDERED: Ringers Lactate 1,000 ML IV ONE (11:10)
[2022-07-28] MEDS ORDERED: propofoL 200 MG/20 ML VIAL IV ONE (15:12)
[2022-07-28] MEDS ORDERED: LIDOCAINE 1% MPF 5 ML VIAL ONE (15:12)
[2022-07-28] MEDS ORDERED: MIDAZOLAM HCL 2 MG/2 ML INJ ONE (15:12)
[2022-07-28] MEDS ORDERED: FENTANYL CITR 100 MCG/2 ML ONE (15:12)
[2022-07-28] MEDS ORDERED: ONDANSETRON 4 MG/2 ML VIAL ONE (15:15)
[2022-07-28] MEDS ORDERED: CEFAZOLIN SODIUM 2 GM/VIAL ONE (15:19)
[2022-07-28] MEDS ORDERED: KETOROLAC 30 MG/ML INJ ONE (15:56)
--- NOTE | 2022-07-28 16:11 | RAD REPORT ---
EXAM DESCRIPTION: RAD - Urethrocystogrphy Retrograde - 07/28/2022 4:06 pm CLINICAL HISTORY: LEFT STENT COMPARISON: Urethrocystogrphy Retrograde dated 01/18/2019 FINDINGS: Total fluoro time: 3 minutes and 33 seconds
[2022-07-28] MEDS ORDERED: TRAMADOL 37.5mg/APAP 325mg PER TAB PO ONE (16:24)
[2022-07-28] MEDS ORDERED: PHENAZOPYRIDINE 100MG TAB PO ONE (16:24)
--- NOTE | 2022-07-28 16:24 | OP ---
Surgeon: CAROLA RITTER Preoperative Diagnoses: 1.Left ureterolithiasis. 2.Left nephrolithiasis. 3.Left hydronephrosis. 4.Left flank pain. Postoperative Diagnoses: 1.Left ureterolithiasis. 2.Left nephrolithiasis. 3.Left hydronephrosis. 4.Left flank pain. 5.Impacted proximal left ureteral calculus. 6.Cystitis. Principal Procedures: 1.Cystoscopy with left retrograde pyelography. 2.Attempted left ureteral stent placement, failed. Indication For Procedure: Ms. Arizmendi is a 72-year-old woman, presented to the [facility]rology Clinic with s ignificant volume of left nephrolithiasis associated with a 4 mm proximal left ureterolithiasis as we ll as small volume right nephrolithiasis as a recurrent stone former over 50 years. Given the signif icant volume of stone, she was recommended for cystoscopy with ureteral stent placement in advance of definitive management via either ureteroscopy with laser lithotripsy or potentially ESWL. Procedure In Detail: The patient was consented in the preoperative holding area before being transfe rred to operative suite where general anesthesia was induced. She was given Ancef 2 g IV antimicrobi al prophylaxis and pneumo boots were provided for DVT prophylaxis. She was placed in the lithotomy p osition, padded and secured to the table appropriately and her genitalia were prepped with Hibiclens before being draped in standard fashion. The case was begun using a 22-Honduran rigid cystoscope to tr averse the urethra and enter a bladder with ease. The bladder was decompressed of fluid and urine an d then refilled with sterile saline and surveyed in its entirety. There were no concerning papillary mucosal lesions, foreign bodies or stones, but there was evidence of chronic cystitis throughout. T he ureteral orifices were orthotopic in location and so the left ureteral orifice was cannulated usin g the tip of a 5-Honduran ureteral access catheter. Fluoroscopic imaging was utilized and a retrograde pyelogram was performed. Left retrograde pyelography: Using a 70:30 mixture of Omnipaque and saline, contrast was injected via the lumen of the 5-Honduran ur eteral access catheter and did navigate up the distal into the mid and into the proximal ureter where it reached a point of obstruction associated with a barely visible radiopaque calculus in the locati on just distal to the UPJ. This was at the body of L4. Because no contrast essentially passed beyon d this point of obstruction, I advanced the 5-Honduran ureteral access catheter into the mid proximal u reter and again injected contrast using a bit more pressure. This time, a wisp of contrast did go be yond the obstructing calculus and begin to enter the renal pelvis and lower pole calices. As a resul t, I utilized a Sensor wire and attempted to pass it via the 5-Honduran ureteral access catheter and in to the collecting system. Unfortunately, the Sensor wire would not pass and would simply coil beneat h this point of obstruction. Multiple attempts were made using live fluoroscopy and were all unsucce ssful. I then tried a Glidewire with a straight tip to try to surpass the stone, but this also would not pass despite multiple attempts under live fluoroscopic imaging. As a result, I utilized an angl ed Glidewire attempting to navigate this past the point of obstruction in the proximal ureter, but ev en this would not pass despite multiple attempts. I tried 1 last time with the Sensor wire before ev entually avoiding further attempts at ureteral stent placement. Of note, I did again try to forcibly inject contrast right beneath the stone in an effort to hopefully dislodge it, but this did not allo w success of wire passage into the collecting system. As a result, I decompressed the bladder of flu id and urine, and took her out of the lithotomy position. She was then awakened from general anesthe joann before being transferred to a stretcher and then transferred to the recovery room in good conditi on. Complications: None. Discharge Disposition: She will require left percutaneous nephrostomy tube placement and an antegrad e approach to management of her nephrolithiasis and proximal impacted ureteral calculus. She will be counseled on the very high risk of stricture formation given the impacted calculus in that region. We will arrange for the left percutaneous nephrostomy to promptly as an outpatient hopefully within t he next 24-48 hours. Subsequent definitive antegrade approach will be determined after the percutane ous nephrostomy tube is placed. ALEXSANDRA/MODL Voice ID: [id number] Report ID: [id number]
[2022-07-28 17:30] VITALS: BP 144/64; TEMP 97.6; O2SAT 99
--- NOTE | 2022-07-28 17:32 | EKG ---
Test Date: 2022-07-23 Test Time: 15:52:24 Supervisor Scrap Preparation: GRACIA MEASUREMENT RESULTS: Intervals: Rate: 72 OR: 194 QRSD: 78 QT: 408 QTc: 446 Wayan: P: 53 OR: 194 QRS: -3 T: 62 INTERPRETIVE STATEMENTS: Normal sinus rhythm Cannot rule out Anterior infarct, age undetermined Abnormal ECG Compared to ECG 01/02/2016 09:41:04 Myocardial infarct finding now present ST (T wave) deviation no longer present Electronically Signed On 07-28-22 17:19:39 ARCHITECTURAL DRAFTER by Saleem Miller
== END 2022-07-28 17:15 | disposition home or self-care (01) ==
LOC: OR 10:06
PROVIDERS: ATTEND Urology
PROC: 0T778DZ Dilation of Left Ureter with Intraluminal Device, Via Natural or Artificial Opening Endoscopic (ICD-10-PCS; principal; 2022-07-28 11:45)
DX: N13.2 Hydronephrosis with renal and ureteral calculous obstruction (principal); R10.9 Unspecified abdominal pain; N30.90 Cystitis, unspecified without hematuria
CPT/HCPCS: 93005; 74450; 51610; 52332; J2704; J2001; J2250; J3010; J7120; J2405

== ENCOUNTER 2022-08-27 06:04 | Day surgery (SDC) | payer OTHER, BC ==
[2022-08-17 10:43] LABS: Absolute Lymphocytes (CBC) 1.4 K/uL (0.7-4.9); Hematocrit 36.7 % (36.0-45.0); Lymphocytes % 16.7 % (15.3-44.8); MCV 86.2 fL (80-100); MPV 7.4 fL (7.6-11.3); RBC Red Blood Cell Count 4.26 M/uL (3.86-4.86)
[2022-08-17 10:44] LABS: Protime INR 1.05
[2022-08-17 10:54] LABS: Potassium 3.6 mmol/L (3.5-5.1)
[2022-08-27] MEDS ORDERED: Ringers Lactate 1,000 ML IV ONE ×2 (06:44→11:11)
[2022-08-27] MEDS ORDERED: VANCOMYCIN 1 GM in NA CHLORIDE 0.9% 250 ML IVPB SCH (07:00)
[2022-08-27] MEDS ORDERED: Gentamicin Inj 200 MG in NA CHLORIDE 0.9% 100 ML IV SCH (07:00)
[2022-08-27] MEDS ORDERED: LIDOCAINE 2% MPF 5 ML VIAL ONE (08:37)
[2022-08-27] MEDS ORDERED: propofoL 200 MG/20 ML VIAL IV ONE (08:37)
[2022-08-27] MEDS ORDERED: ROCURONIUM 50 MG/5 ML VIAL IV ONE (08:38)
[2022-08-27] MEDS ORDERED: NS 0.9% VIAL 0 ML ONE (08:39)
[2022-08-27] MEDS ORDERED: FENTANYL CITR 100 MCG/2 ML ONE ×2 (09:13→09:45)
[2022-08-27] MEDS ORDERED: dexAMETHasone 10 MG/ML VIAL ONE (09:50)
[2022-08-27] MEDS ORDERED: KETOROLAC 30 MG/ML INJ ONE (09:50)
[2022-08-27] MEDS ORDERED: ONDANSETRON 4 MG/2 ML VIAL ONE (09:52)
[2022-08-27] MEDS ORDERED: EPHEDRINE SULF 50 MG/ML VIAL ONE (09:53)
[2022-08-27] MEDS ORDERED: GLYCOPYRROLATE 0.2 MG/ML SYR ONE (11:37)
[2022-08-27] MEDS ORDERED: MEPERIDINE HCL 25 MG/ML SYR ONE (12:18)
[2022-08-27] MEDS ORDERED: DIPHENHYDRAMINE 50 MG/ML VIAL ONE (12:18)
[2022-08-27] MEDS ORDERED: TRAMADOL 37.5mg/APAP 325mg PER TAB PO ONE (12:28)
[2022-08-27] MEDS ORDERED: PHENAZOPYRIDINE 100MG TAB PO ONE (12:28)
--- NOTE | 2022-08-27 12:46 | OP ---
Surgeon: CAROLA RITTER Preoperative Diagnoses: 1.Impacted left ureteropelvic junction calculus. 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 3.Left nephroureterolithiasis. Postoperative Diagnoses: 1.Impacted left ureteropelvic junction calculus. 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 3.Left nephroureterolithiasis. Principal Procedures: 1.Antegrade nephrostogram. 2.Percutaneous nephrostolithotomy. 3.Ureteroscopy with pyeloscopy and laser lithotripsy. 4.Ureteroscopic stone basketing. 5.Balloon dilation of ureteral stricture. 6.Left nephrostomy tube extraction. 7.Left ureteral stent placement. Indication For Procedure: Ms. Arizmendi presented to the Urology Clinic with an obstructing proximal u reteral stone in addition to some nephrolithiasis on the left side. She was taken to the operating r oom for cystoscopy and attempted left ureteral stent placement, but no contrast would pass beyond the point of obstruction in the proximal ureter/UPJ and thus no ureteral stent was able to be placed. S he thus was referred for a percutaneous nephrostomy tube, which was placed via Interventional Radiolo gy. She presents today for antegrade approach to management of the stones and the UPJ suspected sten osis/stricture with impacted UPJ stone. Procedure In Detail: The patient was consented in the preoperative holding area before being transfe rred to the operative suite where general anesthesia was induced. She was given vancomycin, given a preoperative nephrostomy tube urine culture revealing MRSA, and gentamicin 2-3 mg per kg IV antimicro bial prophylaxis. Pneumo boots were provided for DVT prophylaxis. She was intubated on the stretche r and then transferred to the operative table in the prone position with a gel roll across her upper chest and across the pelvis. Her arms were placed laterally and above her head in a relaxed position , padded and secured to the table appropriately. The nephrostomy tube was from its bag and it was prepped copiously using ChloraPrep and draped in standard fashion. The case was begun by inj ecting a 70:30 mixture of Omnipaque and saline via the nephrostomy to perform an antegrade nephrostog mariah and define the anatomy. Left antegrade nephrostogram: Using the 70:30 mixture of Omnipaque and saline, contrast was injected via the lumen of the nephrosto my tube and did delineate the tube, which was placed inferiorly and traversed all the way up across t he surface of the kidney to the upper pole most calyx where it entered and was then subsequently coil ed in the renal pelvis. I thus cut the nephrostomy tube and released it from its suture attaching it to the flank region and passed a Sensor wire via the nephrostomy tube coiling it within the renal pe lvis. Over the Sensor wire, I passed a 5-S[place]omean ureteral access catheter and then attempted to navig ate the tip of the Sensor wire down the ureteropelvic junction. Of note, upon injection of contrast for the antegrade nephrostogram, contrast did terminate in the proximal ureter at the UPJ and would n ot progress further down due to apparent stenosis/stricture in that region. As a result, it was abraham ined within the kidney. Despite multiple attempts using a Sensor wire and then a hydrophilic Glidewi re, I was unable to pass any wires beyond the point of stricture/stenosis in the UPJ/proximal ureter. The stones were not radiopaque and thus not visible fluoroscopically. As a result, I passed a Supe r Stiff wire via the 5-S[place] Tomean ureteral access catheter and coiled it within the renal pelvis securing it as a safety wire. Over the Super Stiff wire, I passed a dual-lumen catheter into the upper pole calyx, infundibulum and passed a Bentson guidewire via the second lumen after confirming appropriate location of the dual-lumen catheter. I similarly coiled the Bentson guidewire within the renal pelvi s. I coiled the Super Stiff wire and kept aside as a safety wire secured in position. I then passed over the Bentson wire after incising the skin a bit more using an 11 blade, a 15-S[place]omean by 10 cm ure teral balloon dilator catheter in order to dilate the nephrostomy tract and entry into the upper pole calyx and infundibulum. This was successfully performed as evidenced fluoroscopically, and once the entire tract was dilated up through the skin, I then was able to pass a 15-[place]omean ureteral access sh eath over the Bentson guidewire successfully into the renal pelvis via the upper pole calyceal infund ibulum. I then secured the ureteral access sheath in place using a 2-0 silk suture, and then I passe d the flexible ureteroscope over the Bentson guidewire all the way into the renal pelvis via the uret eral access sheath. I then navigated it down to the point of obstruction and was able to visualize a n approximately 4-5 mm calculus present there. I thus utilized a 272 nm laser fiber and power settin g of 0.8 joules and 10 hertz to quickly fragment the calculus from its impacted location. Once I per formed this, I still did not see an opening into the proximal ureter; so I injected contrast via the ureteroscope and it still terminated at that point of obstruction. I thus continued to survey using pressurized irrigation visually and finally found a pit within the superior most point visually of th e ureteral lumen and I was then able to pass a Sensor wire via the ureteroscope successfully through this opening and navigated down the ureter all the way into the bladder as evidenced fluoroscopically . I then attempted to pass the ureteroscope over the wire, but it would not pass beyond the point of the strictured stenosis at the UPJ. I thus left the Sensor wire in place and removed the ureterosco pe, then replaced the ureteroscope into the collecting system and this time passed a Bentson wire ryan ngside the Sensor wire this time successfully into the proximal ureter and all the way into the bladd er. Over the Bentson guidewire, I then utilized the 15-[place]an ureteral balloon to dilate what was an evident point of stricture there as evidenced fluoroscopically until it popped open and dilated the stricture to 15-S[place] T[place]an in that location. I then removed the balloon and replaced the ureteroscope an d visualized that location, which did identify the presence of additional calculi that were present s ubmucosally within the point of stricture/stenosis. I thus performed laser lithotripsy using the las er fiber and disrupted the calculi from within the mucosa releasing them. I utilized a basket 1.9-Fr ench 0 tip Nitinol to remove as many of the fragments as possible to prevent them from further impact ing in the mucosal area that was disrupted. I then passed the ureteroscope all the way down the uret er and successfully entered the bladder. I then backed the ureteroscope back and surveyed the entire ty of the ureter identifying no additional stones up through the UPJ. Once back into the renal pelvi s, I then surveyed into the lower and mid pole calyces and performed laser lithotripsy of some additi onal calculi found there. After fragmenting all calculi that I was able to reach within the lower mi d pole calyces, renal pelvis and in the proximal ureter/UPJ, I was unable to access the upper mid stanford e calyces due to the angulation because of the point of injury via the upper pole calyx for the nephr ostomy access. As a result, I then discontinued ureteroscopy and laser lithotripsy via the antegrade approach and over the indwelling Sensor wire, I passed a 7-Sao Tomean by 28 cm double-J ureteral stent s uccessfully into the bladder where a coil was observed fluoroscopically. The end of the stent was le ft in the upper pole infundibulum and thus will coil within the renal pelvis. The nephrostomy access was thus removed under direct vision to ensure no additional calculi were within that location, and once confirmed, ureteral access sheath and ureteroscope were completely removed. The safety wire was also removed out of its coil location within the renal pelvis, and I then utilized 3-0 nylon suture to approximate the skin of the nephrostomy site before applying gauze and tape over it. The patient was then flipped back into the supine position, extubated, awakened from general anesthesia, transfer red to the recovery room in good condition. Complications: None. Discharge Disposition: She will need to maintain the ureteral stent for at least 6-8 weeks given the presence of the UPJ stricture/stenosis as she is at high risk of re-formation of the stricture. Paula or to removal of the stent, I would like for her to have a CT scan of the abdomen performed to assess for any significant volume residual nephrolithiasis that may have been missed in perhaps the upper p ole calyces that were inaccessible given the uppermost pole calyceal access from the nephrostomy. If no additional stones of significance are noted, we will simply plan cystoscopy and left ureteral dane nt extraction in the office in about 6-8 weeks with plans for ultrasound assessment of hydronephrosis and recurrence of the stricture about 8 weeks to 3 months later. Subsequently, she will require met abolic stone profile assessment as she is a frequent recurrent stone former. WR/MODL Voice ID: [id number] Report ID: [id number]
[2022-08-27 12:47] VITALS: O2SAT 99
[2022-08-27 13:52] VITALS: BP 116/71; TEMP 97.2
--- NOTE | 2022-08-28 11:00 | RAD REPORT ---
EXAM DESCRIPTION: RAD - Urethrocystogrphy Retrograde - 08/28/2022 8:49 am CLINICAL HISTORY: LEFT LITHOTRIPSY AND STENT PLCMENT COMPARISON: None available. FINDINGS: Three Images were sent to PACS, documenting needle positions during image guided lithotrip sy and stent place procedure. No radiologist was available for the procedure, nor will any image inte rpretation he provided. Please refer to the procedural report for additional details. Fluoroscopy time: 172.3 seconds. IMPRESSION: Documentation of fluoroscopy utilization as above.
== END 2022-08-27 13:50 | disposition home or self-care (01) ==
LOC: OR 06:04
PROVIDERS: ATTEND Urology
PROC: 0TC78ZZ Extirpation of Matter from Left Ureter, Via Natural or Artificial Opening Endoscopic (ICD-10-PCS; 2022-08-27)
PROC: 0TP5X0Z Removal of Drainage Device from Kidney, External Approach (ICD-10-PCS; principal; 2022-08-27 08:30)
DX: N20.2 Calculus of kidney with calculus of ureter (principal); N13.5 Crossing vessel and stricture of ureter without hydronephrosis
CPT/HCPCS: 36415; 51610; 74450; 80048; 82360; 85025; 85610; 87077; 87086; 87088; 87186; 88300; A4216; J1100; J1200; J1580; J2001; J2175; J2405; J2704; J3010; J7050; J7120